=== PATIENT | male | born 1995 ===

== ENCOUNTER 2020-08-17 00:52 | Emergency (ER) | payer SELFPAY ==
[2020-08-17 00:53] VITALS: BP 147/77; PULSE 92; RESP 14; TEMP 36.7; O2SAT 99; BMI 29.5
[2020-08-17 02:17] LABS: Glucose Urine UA NEG (NEG); Leukocyte Esterase Urine NEG (NEG); Nitrite Urine NEG (NEG); Specific Gravity - Urine 1.015 (1.005-1.025); Urine Blood NEG (NEG); Urine Ketones NEG (NEG); Urine Protein NEG (NEG-TRACE)
[2020-08-17 02:18] LABS: Appearance Urine CLEAR; Color Urine YELLOW; UACC CULT NO
[2020-08-17 02:23] LABS: RBC Urine 0-2 /HPF (0); Squamous Epithelial Cell Urine 1+ /LPF; WBC Urine 0-2 /HPF (0-4)
--- NOTE | 2020-08-17 02:31 | CT_ITS ---
EXAMINATION: CT ABDOMEN AND PELVIS WITH CONTRAST CLINICAL INFORMATION: Left-sided pain. COMPARISON: None. TECHNIQUE: Contiguous axial thin section helical images of the abdomen and pelvis were performed following the administration of 85 mL of intravenous Omnipaque 350. The data set was reformatted in the coronal and sagittal planes and reviewed on an independent workstation. DLP: 549 mGy-cm. FINDINGS: The visualized lung bases are clear. The visualized portions of the heart are unremarkable. The liver is of normal size and attenuation without focal lesions nor intrahepatic biliary ductal dilation. A normal gallbladder is identified. There is no wall thickening or discernible pericholecystic fluid. The spleen, pancreas, adrenal glands are unremarkable. Both kidneys are of normal size and attenuation without hydronephrosis or nephrolithiasis. Following the administration of IV contrast, prompt symmetric nephrograms are displayed. There is no abdominal free fluid. There is neither mesenteric nor retroperitoneal lymphadenopathy. Normal unopacified loops of small and large bowel are identified. A normal appendix is identified. There is no pelvic free fluid. The urinary bladder is unremarkable. There is neither pelvic nor inguinal lymphadenopathy. Bone windows: Neither sclerotic nor lytic bone lesions are identified. CT/CT abdomen pelvis w con IMPRESSION: No evidence for acute abdominal or pelvic inflammatory or infectious processes. Automated exposure control (Care Dose) Adjustment of the mA and/or kv according to patient size (this includes techniques or standardized protocols for targeted exams where dose is matched to indication / reason for exam; i.e. extremities or head).
--- NOTE | 2020-08-17 02:46 | ED.ABDPAIN ---
HPI - Abdominal Pain General Chief Complaint: Skin/Abscess/Foreign Body Stated Complaint: Lump Time Seen by Provider: 08/17/20 02:31 Source: patient Mode of arrival: ambulatory Limitations: no limitations History of Present Illness HPI narrative: This is a 25-year-old male without significant past medical history who presents with 2-3 days overall feeling worse but denies any fevers, chills, myalgias, arthralgias, sore throat, shortness of breath, chest pain /palpitations. However, patient has stated that he has been experiencing a decrease in appetite with some mild nausea when eating but no diarrhea or abdominal discomfort. In addition, he notes a swelling to the left inguinal area that he noticed when he was lifting up a heavy object that causes some discomfort but he denies any additional exacerbation on direct palpation. The latter has not been associated with any obstipation or inability to have a bowel movement. He also states he has a headache with discomfort on eye movement. Related Data Allergies Allergy/AdvReac Type Severity Reaction Status Date / Time bee pollen [bee stings] Allergy Unknown Unknown Verified 08/17/20 00:57 Review of Systems Review of Systems Pertinent positives and negatives as stated in HPI 10 point review of systems otherwise negative. Physical Exam Vital Signs: Vital Signs: Last Vital Signs Temp 98.8 F 08/17/20 04:59 Pulse 67 08/17/20 04:59 Resp 18 08/17/20 04:59 BP 134/62 08/17/20 04:59 Pulse Ox 99 08/17/20 04:59 Body Mass Index 29.5 VITAL SIGNS: Reviewed. GENERAL: Well developed, well nourished, in no acute distress. HEAD: Normocephalic/atraumatic, EYES: PERRLA, EOMI intact without pain, no nystagmus/pallor/icterus noted EARS: Ext canals without abnormality, TMs non-bulging and non-erythematous NOSE: Nares patent bilateral OROPHARYNX: no oral lesions noted, posterior pharynx clear and non-erythematous without noted tonsillar enlargement/erythema/exudates NECK: Supple, no adenopathy LUNGS: Normal breath sounds. No adventitious sounds or accessory muscle use. SpO2<99> CARDIOVASCULAR: Regular rate and rhythm without noted murmurs, no JVD or lower extremity edema. ABDOMEN: Soft, non-tender, non-distended with bowel sounds. No rigidity. No guarding. No palpable masses or hernias noted, Noted 3-4.5 cm swelling at the mid left inguinal area without extension into the scrotum and absent overlying erythema/ induration and no noted tenderness on palpation MUSCULOSKELETAL: No tenderness, deformities, or effusions noted on gross inspection. EXTREMITIES: No cyanosis, clubbing or edema. SKIN: Inspection of the skin reveals no rashes, ulcerations, jaundice, pallor, or petechiae, mildly diaphoretic. NEUROLOGIC: Alert and oriented x 4. Strength and sensation to light touch were grossly intact x 4. Course Course Course Narrative: This is a 25-year-old male with history and clinical presentation suggestive of possible left inguinal hernia and given associated nausea with eating there is a possibility of strangulation, vs. viral syndrome. On review of all investigations there are no significant findings to better explain patient's presenting symptoms, chest x-ray and urinalysis as well as CT of abdomen pelvis are without any acute findings. Patient has had significant improvement of symptoms with the combination analgesics on re-evaluation. All findings and results were discussed with him at bedside and he was strongly encouraged to contact [facility] and get plugged in with a primary care provider so that he can undergo further evaluation and management of non emergent hernia. MDM - Abdominal Pain Lab Data Result diagrams: 08/17/20 02:51 08/17/20 02:51 Labs: Lab Results 08/17/20 08/17/20 08/17/20 Range/Units 02:12 02:51 02:51 WBC 4.2 L (4.8-10.8) X10*3/uL RBC 4.73 (4.60-5.80) X10*6/uL Hgb 14.8 (14.0-18.0) g/dl Hct 41.6 L (42-52) % MCV 87.9 (80-98) fL MCH 31.3 (27.0-33.0) pg MCHC 35.6 (31.0-36.0) g/dl RDW 11.4 (11.0-16.0) % Plt Count 141 L (160-400) X10*3/uL MPV 8.9 L (9.4-12.4) fL Immature Gran % (Auto) 0.2 (0.0-0.4) % Neut % (Auto) 73.7 H (45-73) % Lymph % (Auto) 16.6 L (20-40) % [place] % (Auto) 9.0 (2-11) % Eos % (Auto) 0.0 (0-4) % Baso % (Auto) 0.5 (0-2) % Lymph # (Auto) 0.7 L (1.2-4.9) X10*3/uL [place] # (Auto) 0.4 (0.1-1.2) X10*3/uL Eos # (Auto) 0.0 (0.0-0.4) X10*3/uL Baso # (Auto) 0.0 (0.0-0.2) X10*3/uL Abs Immat Gran (auto) 0.01 (0.00-0.03) X10*3/uL Absolute Neuts (auto) 3.1 (2.0-8.3) X10*3/uL Absolute Nucleated RBC 0.000 (0.0-0.012) X10*3/uL Nucleated RBC % (auto) 0.0 (0.0-0.2) /100WBC Sodium 134 L (135-145) mmol/L Potassium 4.2 (3.3-5.1) mmol/l Chloride 101 (96-108) mmol/L Carbon Dioxide 27 (22-29) mmol/L Anion Gap 10 L (12-20) BUN 8 L (9-16) mg/dL Creatinine 1.04 (0.5-1.4) mg/dL Estim Creat Clear Calc 123.4 Estimated GFR > 60 Random Glucose 114 (60-115) mg/dL Lactic Acid (0.5-2.0) mmol/L Calcium 8.8 (8.4-10.2) mg/dL Total Bilirubin 0.8 (0.0-1.0) mg/dL AST 49 H (5-37) U/L ALT 64 H (0-40) U/L Alkaline Phosphatase 76 (39-117) U/L Total Protein 7.1 (6.5-8.0) g/dL Albumin 4.5 (3.5-5.0) g/dL Urine Color YELLOW Urine Appearance CLEAR Urine pH 8.0 (5.0-8.0) Ur Specific [place] 1.015 (1.005-1.025) Urine Protein NEG (NEG-TRACE) MG/DL Urine Glucose (UA) NEG (NEG) MG/DL Urine Ketones NEG (NEG) MG/DL Urine Blood NEG (NEG) Urine Nitrite NEG (NEG) Ur Leukocyte Esterase NEG (NEG) Urine RBC 0-2 (0) /HPF Urine WBC 0-2 (0-4) /HPF Ur Squamous Epith Cells 1+ /LPF Urine Bacteria NONE /LPF 08/17/20 Range/Units 02:51 WBC (4.8-10.8) X10*3/uL RBC (4.60-5.80) X10*6/uL Hgb (14.0-18.0) g/dl Hct (42-52) % MCV (80-98) fL MCH (27.0-33.0) pg MCHC (31.0-36.0) g/dl RDW (11.0-16.0) % Plt Count (160-400) X10*3/uL MPV (9.4-12.4) fL Immature Gran % (Auto) (0.0-0.4) % Neut % (Auto) (45-73) % Lymph % (Auto) (20-40) % [place] % (Auto) (2-11) % Eos % (Auto) (0-4) % Baso % (Auto) (0-2) % Lymph # (Auto) (1.2-4.9) X10*3/uL [place] # (Auto) (0.1-1.2) X10*3/uL Eos # (Auto) (0.0-0.4) X10*3/uL Baso # (Auto) (0.0-0.2) X10*3/uL Abs Immat Gran (auto) (0.00-0.03) X10*3/uL Absolute Neuts (auto) (2.0-8.3) X10*3/uL Absolute Nucleated RBC (0.0-0.012) X10*3/uL Nucleated RBC % (auto) (0.0-0.2) /100WBC Sodium (135-145) mmol/L Potassium (3.3-5.1) mmol/l Chloride (96-108) mmol/L Carbon Dioxide (22-29) mmol/L Anion Gap (12-20) BUN (9-16) mg/dL Creatinine (0.5-1.4) mg/dL Estim Creat Clear Calc Estimated GFR Random Glucose (60-115) mg/dL Lactic Acid 0.7 (0.5-2.0) mmol/L Calcium (8.4-10.2) mg/dL Total Bilirubin (0.0-1.0) mg/dL AST (5-37) U/L ALT (0-40) U/L Alkaline Phosphatase (39-117) U/L Total Protein (6.5-8.0) g/dL Albumin (3.5-5.0) g/dL Urine Color Urine Appearance Urine pH (5.0-8.0) Ur Specific [place] (1.005-1.025) Urine Protein (NEG-TRACE) MG/DL Urine Glucose (UA) (NEG) MG/DL Urine Ketones (NEG) MG/DL Urine Blood (NEG) Urine Nitrite (NEG) Ur Leukocyte Esterase (NEG) Urine RBC (0) /HPF Urine WBC (0-4) /HPF Ur Squamous Epith Cells /LPF Urine Bacteria /LPF Discharge Plan Discharge Clinical Impression: Acute viral syndrome Patient Disposition: Home, Self-Care Instructions: Viral Syndrome (ED) Additional Instructions: 1. Tylenol 1000 mg, orally, every 6 hours as needed for body aches. Do not exceed 4000 mg within 24 hours. 2. Ibuprofen 400 mg, orally with milk or food, every 6 hours as needed for body aches. 3. Continued increase fluid hydration specifically with water. The patient and/or family acknowledge understanding of results (as applicable), diagnosis, treatment plan, need for follow up, and symptoms that should prompt a return to the emergency room. Referrals: Physician,None [Primary Care Provider] - 2 days PMFSH Past Medical History Source: nursing notes reviewed Medical History No active medical problems Social History Social History Alcohol intake: never Smoking Status: Never smoker Substance Use Type: Marijuana Substance Use Frequency: Weekly Advance Directives: No Advance Directives Information Provided: No
[2020-08-17 02:55] VITALS: BP 123/68; PULSE 82; RESP 18; TEMP 39.2; O2SAT 98
[2020-08-17 02:57] LABS: Imm Gran Abs Auto 0.01 X10*3/uL (0.00-0.03); Imm Gran Pct Auto 0.2 % (0.0-0.4); PLT CLUMP 1; SCAN SMEAR FLAG 1
[2020-08-17 02:58] LABS: Basophils Percent Auto 0.5 % (0-2); Hematocrit 41.6 % (42-52); Hemoglobin 14.8 g/dl (14.0-18.0); Lymphocytes Absolute Auto 0.7 X10*3/uL (1.2-4.9); Lymphocytes Percent Auto 16.6 % (20-40); Mean Corpuscular HGB Conc 35.6 g/dl (31.0-36.0); Mean Corpuscular Hemoglobin 31.3 pg (27.0-33.0); Mean Corpuscular Volume 87.9 fL (80-98); Mean Platelet Volume 8.9 fL (9.4-12.4); Monocytes Absolute Auto 0.4 X10*3/uL (0.1-1.2); Neutrophils Absolute Auto 3.1 X10*3/uL (2.0-8.3); Neutrophils Percent Auto 73.7 % (45-73); Platelet Count 141 X10*3/uL (160-400); Red Blood Count 4.73 X10*6/uL (4.60-5.80); Red Cell Distribution Width 11.4 % (11.0-16.0); White Blood Count 4.2 X10*3/uL (4.8-10.8)
--- NOTE | 2020-08-17 02:58 | PC.NURSE ---
pt states pain to eyes tara with trying to move his eyes to look either up/down or left/right. tim loo made aware.
[2020-08-17 02:59] LABS: MANUAL DIFF FLAG NO
[2020-08-17] MEDS: Ketorolac Tromethamine 15 MG/ML VIAL IVPUSH (03:11)
[2020-08-17] MEDS: Acetaminophen 325 MG TABLET 975 MG PO (03:11)
[2020-08-17 03:23] LABS: Lactic Acid 0.7 mmol/L (0.5-2.0)
[2020-08-17 03:27] LABS: Alanine Aminotransferase 64 U/L (0-40); Albumin Level 4.5 g/dL (3.5-5.0); Alkaline Phosphatase 76 U/L (39-117); Anion Gap 10 (12-20); Aspartate Amino Transferase 49 U/L (5-37); Bilirubin Total 0.8 mg/dL (0.0-1.0); Blood Urea Nitrogen 8 mg/dL (9-16); Calcium 8.8 mg/dL (8.4-10.2); Carbon Dioxide 27 mmol/L (22-29); Chloride 101 mmol/L (96-108); Creatinine Clr Calc Pharmacy 123.4; Estimated Glomerular Filt Rate > 60; Glucose Random 114 mg/dL (60-115); Potassium 4.2 mmol/l (3.3-5.1); Sodium 134 mmol/L (135-145); Total Protein 7.1 g/dL (6.5-8.0)
[2020-08-17] MEDS: iohexoL 350 MG/ML 100 ML INFUS..BTL 85 ML IV (03:46)
--- NOTE | 2020-08-17 04:39 | XR_ITS ---
EXAMINATION: CHEST 2 VIEWS CLINICAL INFORMATION: Cough. COMPARISON: None. TECHNIQUE: PA and lateral views of the chest were obtained. FINDINGS: The cardiac silhouette is not enlarged. The mediastinal and hilar contours are unremarkable. There are neither pleural effusions nor pneumothoraces. There are no consolidations. The osseous structures are unremarkable. XR/XR chest 2V IMPRESSION: No evidence for acute disease.
--- NOTE | 2020-08-17 04:48 | PC.NURSE ---
PT OFF FLOOR TO XRAY. OTHER RESULTS RECEIVED, AWAITING XRAY RESULT AND MD REEVAL.AWARE OF PLAN OF CARE.
[2020-08-17 04:59] VITALS: BP 134/62; PULSE 67; RESP 18; TEMP 37.1; O2SAT 99
--- NOTE | 2020-08-17 05:03 | PC.NURSE ---
pt temp resolved. pt states he was having hot and cold flashes. pt also states his pain with eye movement has resolved as well.
== END 2020-08-17 05:30 | disposition home or self-care (01) ==
PROVIDERS: Emergency Provider Student in an Organized Health Care Education/Training Program
DX: B34.9 Viral infection, unspecified (principal); R10.9 Unspecified abdominal pain; R07.9 Chest pain, unspecified
CPT/HCPCS: 36415; 71046; 74177; 80053; 81001; 83605; 85025; 96374; 99284; J1885; Q9967

== ENCOUNTER 2021-02-24 14:20 | Emergency (ER) | payer SELFPAY ==
[2021-02-24 15:12] VITALS: BP 152/103; PULSE 95; RESP 16; TEMP 36.2; O2SAT 100; BMI 28.3
--- NOTE | 2021-02-24 15:42 | PC.NURSE ---
CALL TO WR BATHROOM, PT WAS ON THE FLOOR OF THE BATHROOM HE STATES HE WAS VOMITING INTO THE TOILET FROM A KNEELING POSITION AND WHEN HE WENT TO STAND HIS LEG GAVE OUT AND HE WENT TO THE FLOOR. NO LOC THE PATIENT PULLED THE CORD IMMEDIATELY. HE REPORTS NO INJURIES.
[2021-02-24 16:00] LABS: MANUAL DIFF FLAG NO
[2021-02-24 16:04] LABS: Basophils Percent Auto 0.2 % (0-2); Eosinophils Percent Auto 0.1 % (0-4); Hematocrit 44.7 % (42-52); Hemoglobin 16.3 g/dl (14.0-18.0); Imm Gran Abs Auto 0.05 X10*3/uL (0.00-0.03); Imm Gran Pct Auto 0.4 % (0.0-0.4); Lymphocytes Absolute Auto 1.5 X10*3/uL (1.2-4.9); Lymphocytes Percent Auto 11.2 % (20-40); Mean Corpuscular HGB Conc 36.5 g/dl (31.0-36.0); Mean Corpuscular Hemoglobin 31.8 pg (27.0-33.0); Mean Corpuscular Volume 87.1 fL (80-98); Mean Platelet Volume 8.7 fL (9.4-12.4); Monocytes Absolute Auto 0.8 X10*3/uL (0.1-1.2); Monocytes Percent Auto 5.7 % (2-11); Neutrophils Absolute Auto 11.1 X10*3/uL (2.0-8.3); Neutrophils Percent Auto 82.4 % (45-73); Platelet Count 253 X10*3/uL (160-400); Red Blood Count 5.13 X10*6/uL (4.60-5.80); White Blood Count 13.5 X10*3/uL (4.8-10.8)
--- NOTE | 2021-02-24 16:25 | ED_ITS ---
HPI - Nausea/Vomiting/Diarrhea General Chief complaint: Nausea/Vomiting/Diarrhea Stated complaint: VOMITING Time Seen by Provider: 02/24/21 16:25 Source: patient Mode of arrival: ambulatory Limitations: no limitations History of Present Illness HPI Narrative: Patient with history of vomiting almost every 3 - 4 months smokes marijuana had previous workup done in the past negative CT scan in 08/22 was negative for any acute pathology comes here for vomiting for last 2 days smoke marijuana yesterday feels better after hot shower. Patient vomiting 7-10 times a day with diffuse abdominal cramps no fever no chills , no diarrhea. No urinary complaints no other family member sick no foreign travel Related Data Previous Rx's Medication Instructions Recorded ondansetron 4 mg PO Q6-8H PRN #10 tab 02/24/21 Allergies Allergy/AdvReac Type Severity Reaction Status Date / Time bee pollen [bee stings] Allergy Unknown Unknown Verified 08/17/20 00:57 Review of Systems Review of Systems: Constitutional : No Weight loss, No Fever, No Chills ENT/Mouth : No sore throat, No Rhinorrhea Eyes: No Eye Pain, No Swelling Cardiovascular : No Chest Pain, no palpitations Respiratory : No Cough, No Sputum, no shortness of breath Gastrointestinal : + Nausea, + Vomiting, No Diarrhea,+ abdominal Pain, no black stools Genitourinary : No Dysuria, No Urinary Frequency Musculoskeletal : No joint pain, No Myalgias, No Joint Swelling Skin : No Skin Lesions, No rash Neuro : No Weakness, No Numbness, No Dizziness, No Headache Psych : No Anxiety/Panic, No Depression Heme/Lymph: No Bruising, No Lymphadenopathy Endocrine : No Polyuria, No Polydipsia All other systems reviewed and are negative PMFSH Past Medical History Medical History No active medical problems Social History Social History Alcohol intake: never Smoking Status: Never smoker Substance Use Type: Marijuana Advance Directives: No Advance Directives Information Provided: Yes Physical Exam Vital Signs: Vital Signs: Last Vital Signs Temp 97.1 F 02/24/21 15:12 Pulse 95 02/24/21 15:12 Resp 16 02/24/21 15:12 BP 152/103 H 02/24/21 15:12 Pulse Ox 100 02/24/21 15:12 Body Mass Index 28.3 Appearance: Alert. Oriented X3. No acute distress. Eyes: PERRLA, No Nystagmus ENT: Pharynx normal. Oral Mucosa moist Neck: Normal inspection. Neck supple. CVS: Normal heart rate and rhythm. Pulses normal. Respiratory: No respiratory distress. Equal air entry bilateral, no wh eezing/rales/rhonchi Abdomen: Soft , mild diffuse tenderness no focal tenderness or guarding, Bowel sounds are present, no mass palpable, no CVA tenderness Skin: Skin warm and dry. Normal skin color. Normal skin turgor. Extremities: No lower extremity edema. No calf tenderness Neuro: Oriented X 3. No motor deficit. No sensory deficit.No cerebellar signs , cranial nerves II-XII intact MDM - Nausea/Vomiting/Diarrhea Lab Data Result diagrams: 02/24/21 15:53 02/24/21 15:53 Labs: Lab Results 02/24/21 02/24/21 Range/Units 15:53 15:53 WBC 13.5 H (4.8-10.8) X10*3/uL RBC 5.13 (4.60-5.80) X10*6/uL Hgb 16.3 (14.0-18.0) g/dl Hct 44.7 (42-52) % MCV 87.1 (80-98) fL MCH 31.8 (27.0-33.0) pg MCHC 36.5 H (31.0-36.0) g/dl RDW 12.0 (11.0-16.0) % Plt Count 253 D (160-400) X10*3/uL MPV 8.7 L (9.4-12.4) fL Immature Gran % (Auto) 0.4 (0.0-0.4) % Neut % (Auto) 82.4 H (45-73) % Lymph % (Auto) 11.2 L (20-40) % [place] % (Auto) 5.7 (2-11) % Eos % (Auto) 0.1 (0-4) % Baso % (Auto) 0.2 (0-2) % Lymph # (Auto) 1.5 (1.2-4.9) X10*3/uL [place] # (Auto) 0.8 (0.1-1.2) X10*3/uL Eos # (Auto) 0.0 (0.0-0.4) X10*3/uL Baso # (Auto) 0.0 (0.0-0.2) X10*3/uL Abs Immat Gran (auto) 0.05 H (0.00-0.03) X10*3/uL Absolute Neuts (auto) 11.1 H (2.0-8.3) X10*3/uL Absolute Nucleated RBC 0.000 (0.0-0.012) X10*3/uL Nucleated RBC % (auto) 0.0 (0.0-0.2) /100WBC Sodium 136 (135-145) mmol/L Potassium 4.2 (3.3-5.1) mmol/L Chloride 98 (96-108) mmol/L Carbon Dioxide 21 L (22-29) mmol/L Anion Gap 21 H (12-20) BUN 22 H D (9-16) mg/dL Creatinine 1.17 (0.5-1.4) mg/dL Estim Creat Clear Calc 107.6 Estimated GFR > 60 Random Glucose 122 H (60-115) mg/dL Calcium 10.4 H D (8.4-10.2) mg/dL Discharge Plan Discharge Clinical Impression: Vomiting, Cannabis abuse Patient Disposition: Home, Self-Care Instructions: Cannabis Abuse (ED), Cyclic Vomiting Syndrome (ED) Additional Instructions: Stop smoking cannabis Drink plenty of fluids Prescriptions: New ondansetron 4 mg tablet,disintegrating 4 mg PO Q6-8H PRN (Reason: Nausea And Vomiting) Qty: 10 RF: 0 Interventions: ED Discharge Assessment Last Done: 02/24/21 19:58 Discharge Date/Time: 02/24/21 19:59
[2021-02-24 16:32] LABS: Anion Gap 21 (12-20); Blood Urea Nitrogen 22 mg/dL (9-16); Calcium 10.4 mg/dL (8.4-10.2); Carbon Dioxide 21 mmol/L (22-29); Chloride 98 mmol/L (96-108); Creatinine Clr Calc Pharmacy 107.6; Estimated Glomerular Filt Rate > 60; Glucose Random 122 mg/dL (60-115); Potassium 4.2 mmol/L (3.3-5.1); Sodium 136 mmol/L (135-145)
[2021-02-24] MEDS: LORazepam 2 MG/ML VIAL IM (16:57)
== END 2021-02-24 19:59 | disposition home or self-care (01) ==
PROVIDERS: Emergency Provider Internal Medicine
DX: R11.2 Nausea with vomiting, unspecified (principal); R10.9 Unspecified abdominal pain; F12.10 Cannabis abuse, uncomplicated
CPT/HCPCS: 36415; 80048; 85025; 96372; 99283; 99284; J2060

== ENCOUNTER 2021-06-12 09:08 | Outpatient (REF) | payer SELFPAY | END 2021-06-12 09:09 | disposition home or self-care (01) | LOC: HO.LAB 09:08 | PROVIDERS: Visit Provider Internal Medicine | DX: Z13.89 Encounter for screening for other disorder (principal) ==

== ENCOUNTER 2022-06-30 13:35 | Outpatient (REF) | payer MEDICAID, SELFPAY ==
--- NOTE | ~2022-06-30 | XR_ITS ---
EXAMINATION: XR HAND, LEFT CLINICAL INFORMATION: Swelling, mass, and lump. COMPARISON: None TECHNIQUE: PA, lateral, and oblique views of the left hand. FINDINGS: No fracture or dislocation. Normal carpal alignment. No significant joint space narrowing or marginal osteophytes. No osseous erosion. No periarticular osteopenia. No abnormal soft tissue calcification. XR/XR hand LT min 3V IMPRESSION: Unremarkable examination.
== END 2022-06-30 13:36 | disposition home or self-care (01) ==
LOC: HO.XRAY 13:35
PROVIDERS: Visit Provider Emergency Medicine
DX: R22.32 Localized swelling, mass and lump, left upper limb (principal)
CPT/HCPCS: 73130

== ENCOUNTER → 2022-09-14 13:54 | Outpatient (BNVA) | payer MEDICAID, SELFPAY | PROVIDERS: Visit Provider Orthopaedic Surgery | DX: M67.432 Ganglion, left wrist (principal); R20.0 Anesthesia of skin; R20.2 Paresthesia of skin | CPT/HCPCS: 20612; 99202 ==

== ENCOUNTER 2022-10-12 20:55 | Emergency (ER) | payer MEDICAID, SELFPAY ==
[2022-10-12 21:02] VITALS: BP 128/92; PULSE 109; RESP 18; TEMP 36.1; O2SAT 98; BMI 29.1
--- NOTE | 2022-10-12 21:29 | ED_ITS ---
HPI - General Adult General Chief complaint: Nausea/Vomiting/Diarrhea Stated complaint: Abdominal pain Time Seen by Provider: 10/12/22 21:29 Source: patient Mode of arrival: ambulatory Limitations: no limitations History of Present Illness HPI narrative: Patient has cyclic vomiting/cannabis induced vomiting for long-time smokes marijuana last him smoke was few days of complaining of nausea vomiting for last 5 days patient does get this problem almost unable to hold any fluids or solids no abdominal pain no fever Related Data Previous Rx's Medication Instructions Recorded ondansetron 4 mg disintegrating 4 mg PO Q6-8H PRN Nausea And 02/24/21 tablet Vomiting #10 tabs lorazepam 1 mg tablet (Ativan) 1 mg PO BEDTIME PRN 10/13/22 Anxiety/vomiting #10 tabs ondansetron 4 mg disintegrating 4 mg PO Q6-8H PRN nausea and 10/13/22 tablet vomiting #10 tabs Allergies Allergy/AdvReac Type Severity Reaction Status Date / Time bee pollen [bee stings] Allergy Unknown Unknown Verified 08/17/20 00:57 Review of Systems Review of Systems: Yes all other systems are reviewed and are negative PMFSH Past Medical History Medical History No active medical problems Social History Social History Alcohol intake: never Patient Tobacco Use Status: Never used Tobacco Substance Use Type: Marijuana Advance Directives: No Advance Directives Information Provided: No Current occupational status: unemployed Physical Exam ED Vital Signs: Vital Signs - 24 hr 10/12/22 21:02 10/12/22 23:11 Temperature 96.9 F 98.2 F Pulse Rate 109 H 80 Respiratory Rate 18 16 Blood Pressure 128/92 H 131/74 Pulse Oximetry 98 98 Oxygen Delivery Method Room Air Room Air BMI result Body Mass Index 29.1 Appearance: Alert. Oriented X3. No acute distress. Eyes: PERRLA, No Nystagmus ENT: Pharynx normal. Oral Mucosa moist Neck: Normal inspection. Neck supple. CVS: Normal heart rate and rhythm. Pulses normal. Respiratory: No respiratory distress. Equal air entry bilateral, no wheezing/rales/rhonchi Abdomen: Soft and nontender. Bowel sounds are present, no mass palpable, no CVA tenderness Skin: Skin warm and dry. Normal skin color. Normal skin turgor. Extremities: No lower extremity edema. No calf tenderness Neuro: Oriented X 3. No motor deficit. Medications Administered Discontinued Medications Generic Name Dose Route Start Last Admin Trade Name Nigel PRN Reason Stop Dose Admin Sodium Chloride 1,000 mls @ 999 mls/hr 10/12/22 21:56 10/13/22 00:36 Ns IV 10/12/22 22:56 Infused .Q1H1M ONE Infusion Sodium Chloride 1,000 mls @ 999 mls/hr 10/13/22 00:24 10/13/22 00:37 Ns IV 10/13/22 01:24 999 mls/hr .Q1H1M ONE Administration Lorazepam 1 mg 10/12/22 21:56 10/12/22 22:16 Lorazepam 2 Mg/Ml Vial IVPUSH 10/12/22 21:57 1 mg ONCE ONE Administration Potassium Bicarbonate 25 meq 10/13/22 00:24 10/13/22 00:37 Potassium Bicarbonate/Cit Ac 25 Meq Tablet.Eff PO 10/13/22 00:25 25 meq ONCE ONE Administration Prochlorperazine Edisylate 10 mg 10/12/22 21:56 10/12/22 22:16 Prochlorperazine Edisylate 10 Mg/2 Ml Vial IVPUSH 10/12/22 21:57 10 mg ONCE ONE Administration Medical Decision Making Medical Decision Making [facility] Narrative: Patient has cyclic vomiting syndrome/cannabis induced vomiting received 2 L of IV fluid and p.o. potassium taking p.o. fluids now feeling much better will discharge patient advised not to smoke marijuana Lab Data [facility] Lab Attestation statement: I reviewed the patient's lab results. 10/12/22 22:23 10/12/22 22:23 Labs: Lab Results 10/12/22 10/12/22 Range/Units 22:23 22:23 WBC 12.1 H (4.8-10.8) X10*3/uL RBC 5.40 (4.60-5.80) X10*6/uL Hgb 16.5 (14.0-18.0) g/dl Hct 45.0 (42.0-52.0) % MCV 83.3 (80.0-98.0) fL MCH 30.6 (27.0-33.0) pg MCHC 36.7 H (31.0-36.0) g/dl RDW 11.5 (11.0-16.0) % Plt Count 278 (160-400) X10*3/uL MPV 8.5 L (9.4-12.4) fL Immature Gran % (Auto) 0.2 (0.0-0.4) % Neut % (Auto) 63.8 (45-73) % Lymph % (Auto) 25.6 (20-40) % [place] % (Auto) 9.9 (2-11) % Eos % (Auto) 0.3 (0-4) % Baso % (Auto) 0.2 (0-2) % Lymph # (Auto) 3.1 (1.2-4.9) X10*3/uL [place] # (Auto) 1.2 (0.1-1.2) X10*3/uL Eos # (Auto) 0.0 (0.0-0.4) X10*3/uL Baso # (Auto) 0.0 (0.0-0.2) X10*3/uL Abs Immat Gran (auto) 0.03 (0.00-0.03) X10*3/uL Absolute Neuts (auto) 7.7 (2.0-8.3) x10*3/uL Absolute Nucleated RBC 0.000 (0.0-0.012) X10*3/uL Nucleated RBC % (auto) 0.0 (0.0-0.2) /100WBC Sodium 134 L (135-145) mmol/L Potassium 3.2 L D (3.3-5.1) mmol/L Chloride 88 L (96-108) mmol/L Carbon Dioxide 28 (22-29) mmol/L Anion Gap 21 H (12-20) BUN 42 H (9-16) mg/dL Creatinine 1.86 H (0.5-1.4) mg/dL Estim Creat Clear Calc 67.4 Estimated GFR 43 Random Glucose 112 (60-115) mg/dL Calcium 10.2 (8.4-10.2) mg/dL Total Bilirubin 2.0 H (0.0-1.0) mg/dL AST 28 D (5-37) U/L ALT 41 H (0-40) U/L Alkaline Phosphatase 87 (39-117) U/L Total Protein 8.4 H (6.5-8.0) g/dL Albumin 5.1 H (3.5-5.0) g/dL Discharge Plan Discharge Clinical Impression: Cyclic vomiting syndrome Patient Disposition: Home, Self-Care Instructions: Cyclic Vomiting Syndrome (ED) Additional Instructions: Stop smoking marijuana Nausea medication and Ativan as prescribed Prescriptions: New lorazepam [Ativan] 1 mg tablet 1 mg PO BEDTIME PRN (Reason: Anxiety/vomiting) Qty: 10 0RF ondansetron 4 mg tablet,disintegrating 4 mg PO Q6-8H PRN (Reason: nausea and vomiting) Qty: 10 0RF No Action ondansetron 4 mg tablet,disintegrating 4 mg PO Q6-8H PRN (Reason: Nausea And Vomiting) Qty: 10 0RF
[2022-10-12] MEDS: 0.9 % Sodium Chloride 1,000 ML 999 ML IV (22:15)
[2022-10-12] MEDS: LORazepam 2 MG/ML VIAL 1 MG IVPUSH (22:16)
[2022-10-12] MEDS: Prochlorperazine Edisylate 10 MG/2 ML VIAL IVPUSH (22:16)
--- NOTE | 2022-10-12 22:25 | MHC.EDTECH ---
At 21:30 this pv design and installation technician went to draw blood work that the patient has ordered and Dr. Perez asked me are you going to draw the blood work and I said yes. Dr. Perez instructed me not to draw the patient that the nurse could get the blood draw when she puts the line on the patient. I said ok and put supplies away.
[2022-10-12 22:27] LABS: MANUAL DIFF FLAG NO
[2022-10-12 22:28] LABS: Basophils Percent Auto 0.2 % (0-2); Eosinophils Percent Auto 0.3 % (0-4); Hemoglobin 16.5 g/dl (14.0-18.0); Imm Gran Abs Auto 0.03 X10*3/uL (0.00-0.03); Imm Gran Pct Auto 0.2 % (0.0-0.4); Lymphocytes Absolute Auto 3.1 X10*3/uL (1.2-4.9); Lymphocytes Percent Auto 25.6 % (20-40); Mean Corpuscular HGB Conc 36.7 g/dl (31.0-36.0); Mean Corpuscular Hemoglobin 30.6 pg (27.0-33.0); Mean Corpuscular Volume 83.3 fL (80.0-98.0); Mean Platelet Volume 8.5 fL (9.4-12.4); Monocytes Absolute Auto 1.2 X10*3/uL (0.1-1.2); Monocytes Percent Auto 9.9 % (2-11); Neutrophils Absolute Auto 7.7 x10*3/uL (2.0-8.3); Neutrophils Percent Auto 63.8 % (45-73); Platelet Count 278 X10*3/uL (160-400); Red Cell Distribution Width 11.5 % (11.0-16.0); White Blood Count 12.1 X10*3/uL (4.8-10.8)
[2022-10-12 22:51] LABS: Alanine Aminotransferase 41 U/L (0-40); Albumin Level 5.1 g/dL (3.5-5.0); Alkaline Phosphatase 87 U/L (39-117); Anion Gap 21 (12-20); Aspartate Amino Transferase 28 U/L (5-37); Blood Urea Nitrogen 42 mg/dL (9-16); Calcium 10.2 mg/dL (8.4-10.2); Carbon Dioxide 28 mmol/L (22-29); Chloride 88 mmol/L (96-108); Creatinine Clr Calc Pharmacy 67.4; Estimated Glomerular Filt Rate 43; Glucose Random 112 mg/dL (60-115); Potassium 3.2 mmol/L (3.3-5.1); Sodium 134 mmol/L (135-145); Total Protein 8.4 g/dL (6.5-8.0)
[2022-10-12 23:11] VITALS: BP 131/74; PULSE 80; RESP 16; TEMP 36.8; O2SAT 98
[2022-10-13] MEDS: Potassium Bicarbonate/Cit AC 25 MEQ TABLET.EFF PO (00:37)
[2022-10-13] MEDS: 0.9 % Sodium Chloride 1,000 ML 999 ML IV (00:37)
--- NOTE | 2022-10-13 01:52 | PC.NURSE ---
Pt. came in with N/V. IV line was placed, labs were drawn. Pt. was able to fall asleep. Woke pt. up to take his medications (potassium). Pt. able to tolerate that with applejuice.
== END 2022-10-13 02:11 | disposition home or self-care (01) ==
PROVIDERS: Emergency Provider Internal Medicine
DX: R11.15 Cyclical vomiting syndrome unrelated to migraine (principal); F12.90 Cannabis use, unspecified, uncomplicated; Z79.899 Other long term (current) drug therapy
CPT/HCPCS: 36415; 80053; 85025; 96361; 96374; 96375; 99284; J2060

== ENCOUNTER 2022-12-15 09:58 | Outpatient (REF) | payer MEDICAID, SELFPAY ==
--- NOTE | 2022-12-15 10:01 | EMG_ITS ---
Please see scanned EMG / Nerve Conduction Report. MTDD
== END 2022-12-15 09:59 | disposition home or self-care (01) ==
LOC: HO.NEURO 09:58
PROVIDERS: Visit Provider Orthopaedic Surgery
DX: R20.0 Anesthesia of skin (principal); R20.2 Paresthesia of skin
CPT/HCPCS: 95885; 95910

== ENCOUNTER 2023-01-16 13:53 | Emergency (ER) | payer MEDICAID, SELFPAY ==
--- NOTE | ~2023-01-16 | CT_ITS ---
EXAMINATION: CT ABDOMEN AND PELVIS WITHOUT CONTRAST CLINICAL INFORMATION: 27-year-old male with abdominal pain, vomiting and nausea. COMPARISON: 08/17/2020 TECHNIQUE: Multidetector volumetric imaging was performed from the superior aspect of the liver through the pubic symphysis. Sagittal and coronal reformatted images were obtained on the technologist's workstation. This CT examination was performed using dose optimization techniques as appropriate, variously including the following: *Automated exposure control *Adjustment of mA and/or kV according to patient size (this includes techniques or standardized protocols for targeted exams where dose is matched to indication/reason for exam; i.e. extremities or head) *Use of iterative reconstruction technique DLP: 553 mGy-cm FINDINGS: LUNG BASES: The visualized lung bases are unremarkable. LIVER, GALLBLADDER, AND BILIARY TREE: The liver is normal in size, shape, and attenuation. No focal hepatic lesion or biliary ductal dilatation is present. The gallbladder is unremarkable with no evidence of radiopaque gallstones, gallbladder wall thickening, or obvious pericholecystic inflammatory changes. PANCREAS: Unremarkable. SPLEEN: Unremarkable. ADRENAL GLANDS: Unremarkable. KIDNEYS AND URETERS: The kidneys are normal in size, shape, and attenuation. No hydronephrosis, hydroureter, or calculi seen. No perinephric stranding. BLADDER: Unremarkable. GASTROINTESTINAL TRACT: The small and large bowel are unremarkable. The appendix is unremarkable. ABDOMINAL WALL: No significant hernia is appreciated. LYMPH NODES: Normal. VASCULAR: Unremarkable. PELVIC VISCERA: Unremarkable. OSSEOUS STRUCTURES: Unremarkable. CT/CT abdomen pelvis wo IV con IMPRESSION: No significant abnormality. Fleischner guidelines were followed.
[2023-01-16 14:13] VITALS: BP 147/101; PULSE 102; RESP 16; TEMP 36.6; O2SAT 99; BMI 29.4
--- NOTE | 2023-01-16 14:13 | ED_ITS ---
HPI - Nausea/Vomiting/Diarrhea General Chief complaint: Nausea/Vomiting/Diarrhea <ARNOLD Mcgrath - Last Filed: 01/16/23 14:18> Stated complaint: 4xdays throwing up <ARNOLD Mcgrath - Last Filed: 01/16/23 14:18> Time Seen by Provider: 01/16/23 16:45 <ARNOLD Mcgrath - Last Filed: 01/16/23 14:18> Source: patient <Abraham Hart MD - Last Filed: 01/16/23 19:35> Mode of arrival: ambulatory <Abraham Hart MD - Last Filed: 01/16/23 19:35> Limitations: no limitations <Abraham Hart MD - Last Filed: 01/16/23 19:35> History of Present Illness HPI Narrative: Patient history of cannabis abuse and cyclic vomiting been sick for last 4 days after eating pasta vomiting multiple times for last 2 days noticed pain in the left flank and left upper abdomen area no fever no chills no diarrhea no fever no chills no urinary symptoms no other family member sick <Abraham Hart MD - Last Filed: 01/16/23 19:35> Related Data Home medications: Previous Rx's Medication Instructions Recorded ondansetron 4 mg disintegrating 4 mg PO Q6-8H PRN Nausea And 02/24/21 tablet Vomiting #10 tabs lorazepam 1 mg tablet (Ativan) 1 mg PO BEDTIME PRN 10/13/22 Anxiety/vomiting #10 tabs ondansetron 4 mg disintegrating 4 mg PO Q6-8H PRN nausea and 10/13/22 tablet vomiting #10 tabs lorazepam 1 mg tablet (Ativan) 1 mg PO BID PRN anxiety #14 tabs 01/16/23 ondansetron 4 mg disintegrating 4 mg PO Q6-8H PRN nausea and 01/16/23 tablet vomiting #7 tabs <ARNOLD Mcgrath - Last Filed: 01/16/23 14:18> Allergies/Adverse reactions: Allergies Allergy/AdvReac Type Severity Reaction Status Date / Time bee pollen [bee stings] Allergy Unknown Unknown Verified 08/17/20 00:57 <ARNOLD Mcgrath - Last Filed: 01/16/23 14:18> Review of Systems Review of Systems: Yes all other systems are reviewed and are negative <Abraham Hart MD - Last Filed: 01/16/23 19:35> [facility] Past Medical History Medical History: Medical History No active medical problems <ARNOLD Mcgrath - Last Filed: 01/16/23 14:18> Social History Social History: Social History Alcohol intake: never Patient Tobacco Use Status: Never used Tobacco Smoked in Last 30 Days: No Use of substances other than those prescribed or required for medical reasons: Yes Substance Use Type: Marijuana Substance Use Frequency: Occasionally Last Used Substance: Days (ago) Advance Directives: No Advance Directives Information Provided: No Current occupational status: unemployed <ARNOLD Mcgrath - Last Filed: 01/16/23 14:18> Physical Exam Vital Signs: Vital Signs: Last Vital Signs Temp 98.9 F 01/16/23 18:00 Pulse 85 01/16/23 18:00 Resp 01/16/23 18:00 BP 123/63 01/16/23 18:00 Pulse Ox 97 01/16/23 18:00 O2 Del Method Room Air 01/16/23 18:00 BMI result Body Mass Index 29.4 <ARNOLD Mcgrath - Last Filed: 01/16/23 14:18> Vital Signs: Last Vital Signs Temp 98.9 F 01/16/23 18:00 Pulse 85 01/16/23 18:00 Resp 01/16/23 18:00 BP 123/63 01/16/23 18:00 Pulse Ox 97 01/16/23 18:00 O2 Del Method Room Air 01/16/23 18:00 BMI result Body Mass Index 29.4 <Abraham Hart MD - Last Filed: 01/16/23 19:35> Appearance: Alert. Oriented X3. Anxious ENT: Pharynx normal. Oral Mucosa moist Neck: Normal inspection. Neck supple. CVS: Normal heart rate and rhythm. Pulses normal. Respiratory: No respiratory distress. Equal air entry bilateral, no wheezing/rales/rhonchi Abdomen: Soft , tenderness left upper abdomen and left flank, Bowel sounds are present, no mass palpable, Skin: Skin warm and dry. Normal skin color. Normal skin turgor. Extremities: No lower extremity edema. No calf tenderness Neuro: Oriented X 3. <Abraham Hart MD - Last Filed: 01/16/23 19:35> Course Course Course Narrative: STEPHANIE-14:15PM - 27yoM with a PMHx of cannabis induced cyclical vomiting who is presenting to the ER with complaints of nausea/vomiting with abdominal cramping that started 4 days ago. Reports that he ate some pasta and did smoke stone marijuana approximately 5 days ago and then the next morning he woke up and had sudden onset of nausea/vomiting. He denied any abdominal pain although here in triage she developed a sharp pain to the left side of his abdomen/flank/back. Reports he believes it may be related to the possibly he ate. He reports that he was with other people who ate the pasta and they did not have any of the symptoms. He denies any recent travel or sick contacts, any fevers, chest pain or shortness of breath, dysuria, or any other symptoms complaints or concerns at this time. Plan: 4 mg of sublingual Zofran and 30 mg of IM Toradol ordered at this time. Will obtain labs, UA, CT scan of abdomen pelvis without IV contrast. Patient will be sent back to a room to be evaluated in the ED. <ARNOLD Mcgrath - Last Filed: 01/16/23 14:18> Medications Administered Discontinued Medications Generic Name Dose Route Start Last Admin Trade Name Freq PRN Reason Stop Dose Admin Sodium Chloride 1,000 mls @ 999 mls/hr 01/16/23 16:47 01/16/23 19:08 Ns IV 01/16/23 17:47 Infused .Q1H1M ONE Infusion Ketorolac Tromethamine 30 mg 01/16/23 14:17 01/16/23 15:05 Ketorolac Tromethamine 30 Mg/Ml Vial IM 01/16/23 14:18 30 mg ONCE ONE Administration Lorazepam 2 mg 01/16/23 16:48 01/16/23 17:05 Lorazepam 2 Mg/Ml Vial IVPUSH 01/16/23 16:49 2 mg ONCE ONE Administration Morphine Sulfate 4 mg 01/16/23 16:52 01/16/23 17:04 Morphine Sulfate 4 Mg/Ml Cartridge IVPUSH 01/16/23 16:53 4 mg ONCE ONE Administration Protocol Ondansetron HCl 4 mg 01/16/23 14:14 01/16/23 15:05 Ondansetron Odt 4 Mg Tab.Rapdis TRANSLINGU 01/16/23 14:15 4 mg ONCE ONE Administration Prochlorperazine Edisylate 10 mg 01/16/23 16:48 01/16/23 17:05 Prochlorperazine Edisylate 10 Mg/2 Ml Vial IVPUSH 01/16/23 16:49 10 mg ONCE ONE Administration <ARNOLD Mcgrath - Last Filed: 01/16/23 14:18> Medications Administered Discontinued Medications Generic Name Dose Route Start Last Admin Trade Name Freq PRN Reason Stop Dose Admin Sodium Chloride 1,000 mls @ 999 mls/hr 01/16/23 16:47 01/16/23 19:08 Ns IV 01/16/23 17:47 Infused .Q1H1M ONE Infusion Ketorolac Tromethamine 30 mg 01/16/23 14:17 01/16/23 15:05 Ketorolac Tromethamine 30 Mg/Ml Vial IM 01/16/23 14:18 30 mg ONCE ONE Administration Lorazepam 2 mg 01/16/23 16:48 01/16/23 17:05 Lorazepam 2 Mg/Ml Vial IVPUSH 01/16/23 16:49 2 mg ONCE ONE Administration Morphine Sulfate 4 mg 01/16/23 16:52 01/16/23 17:04 Morphine Sulfate 4 Mg/Ml Cartridge IVPUSH 01/16/23 16:53 4 mg ONCE ONE Administration Protocol Ondansetron HCl 4 mg 01/16/23 14:14 01/16/23 15:05 Ondansetron Odt 4 Mg Tab.Rapdis TRANSLINGU 01/16/23 14:15 4 mg ONCE ONE Administration Prochlorperazine Edisylate 10 mg 01/16/23 16:48 01/16/23 17:05 Prochlorperazine Edisylate 10 Mg/2 Ml Vial IVPUSH 01/16/23 16:49 10 mg ONCE ONE Administration <Abraham Hart MD - Last Filed: 01/16/23 19:35> Medical Decision Making Medical Decision Making MDM Narrative: Patient feeling better after IV , Compazine able to take p.o. challenge likely patient has cannabis induced vomiting/cyclic vomiting <Abraham Hart MD - Last Filed: 01/16/23 19:35> Lab Data [facility] Lab Attestation statement: I reviewed the patient's lab results. <Abraham Hart MD - Last Filed: 01/16/23 19:35> Result Diagrams: 01/16/23 14:38 01/16/23 14:38 <ARNOLD Mcgrath - Last Filed: 01/16/23 14:18> Labs: Lab Results 01/16/23 01/16/23 01/16/23 Range/Units 14:38 14:38 14:38 WBC 15.0 H (4.8-10.8) X10*3/uL RBC 5.88 H (4.60-5.80) X10*6/uL Hgb 17.9 (14.0-18.0) g/dl Hct 49.0 (42.0-52.0) % MCV 83.3 (80.0-98.0) fL MCH 30.4 (27.0-33.0) pg MCHC 36.5 H (31.0-36.0) g/dl RDW 11.7 (11.0-16.0) % Plt Count 321 (160-400) X10*3/uL MPV 8.7 L (9.4-12.4) fL Immature Gran % (Auto) 0.4 (0.0-0.4) % Neut % (Auto) 71.2 (45-73) % Lymph % (Auto) 18.9 L (20-40) % Campbell % (Auto) 9.0 (2-11) % Eos % (Auto) 0.3 (0-4) % Baso % (Auto) 0.2 (0-2) % Lymph # (Auto) 2.8 (1.2-4.9) X10*3/uL Campbell # (Auto) 1.4 H (0.1-1.2) X10*3/uL Eos # (Auto) 0.0 (0.0-0.4) X10*3/uL Baso # (Auto) 0.0 (0.0-0.2) X10*3/uL Abs Immat Gran (auto) 0.06 H (0.00-0.03) X10*3/uL Absolute Neuts (auto) 10.7 H (2.0-8.3) x10*3/uL Absolute Nucleated RBC 0.000 (0.0-0.012) X10*3/uL Nucleated RBC % (auto) 0.0 (0.0-0.2) /100WBC PT 12.2 (10.0-13.1) SEC INR 1.1 (0.9-1.1) Sodium 134 L (135-145) mmol/L Potassium 3.4 (3.3-5.1) mmol/L Chloride 92 L (96-108) mmol/L Carbon Dioxide 24 (22-29) mmol/L Anion Gap 21 H (12-20) BUN 35 H (9-16) mg/dL Creatinine 1.78 H (0.5-1.4) mg/dL Estim Creat Clear Calc 70.7 Estimated GFR 46 Random Glucose 125 H (60-115) mg/dL Calcium 10.4 H (8.4-10.2) mg/dL Magnesium 2.2 (1.6-2.6) mg/dL Total Bilirubin 2.3 H (0.0-1.0) mg/dL AST 19 (5-37) U/L ALT 38 (0-40) U/L Alkaline Phosphatase 112 (39-117) U/L Total Protein 8.5 H (6.5-8.0) g/dL Albumin 5.4 H (3.5-5.0) g/dL Lipase 17 (8-78) U/L Urine Color Urine Appearance Urine pH (5.0-9.0) Ur Specific [place] (1.005-1.025) Urine Protein (Neg-Trace) mg/dL Urine Glucose (UA) (Negative) mg/dL Urine Ketones (Negative) mg/dL Urine Blood (Negative) Urine Nitrite (Negative) Ur Leukocyte Esterase (Negative) Urine RBC (0-2) /HPF Urine WBC (0-5) /HPF Ur Squamous Epith Cells (0-2) /HPF Urine Bacteria (None Seen) Hyaline Casts (0-2) /LPF Influenza Type A (PCR) (Negative) Influenza Type B (PCR) (Negative) RSV RNA Qual (PCR) (Negative) SARS-CoV-2 RNA (RT-PCR) (Negative) 01/16/23 01/16/23 Range/Units 14:38 18:57 WBC (4.8-10.8) X10*3/uL RBC (4.60-5.80) X10*6/uL Hgb (14.0-18.0) g/dl Hct (42.0-52.0) % MCV (80.0-98.0) fL MCH (27.0-33.0) pg MCHC (31.0-36.0) g/dl RDW (11.0-16.0) % Plt Count (160-400) X10*3/uL MPV (9.4-12.4) fL Immature Gran % (Auto) (0.0-0.4) % Neut % (Auto) (45-73) % Lymph % (Auto) (20-40) % Campbell % (Auto) (2-11) % Eos % (Auto) (0-4) % Baso % (Auto) (0-2) % Lymph # (Auto) (1.2-4.9) X10*3/uL Campbell # (Auto) (0.1-1.2) X10*3/uL Eos # (Auto) (0.0-0.4) X10*3/uL Baso # (Auto) (0.0-0.2) X10*3/uL Abs Immat Gran (auto) (0.00-0.03) X10*3/uL Absolute Neuts (auto) (2.0-8.3) x10*3/uL Absolute Nucleated RBC (0.0-0.012) X10*3/uL Nucleated RBC % (auto) (0.0-0.2) /100WBC PT (10.0-13.1) SEC INR (0.9-1.1) Sodium (135-145) mmol/L Potassium (3.3-5.1) mmol/L Chloride (96-108) mmol/L Carbon Dioxide (22-29) mmol/L Anion Gap (12-20) BUN (9-16) mg/dL Creatinine (0.5-1.4) mg/dL Estim Creat Clear Calc Estimated GFR Random Glucose (60-115) mg/dL Calcium (8.4-10.2) mg/dL Magnesium (1.6-2.6) mg/dL Total Bilirubin (0.0-1.0) mg/dL AST (5-37) U/L ALT (0-40) U/L Alkaline Phosphatase (39-117) U/L Total Protein (6.5-8.0) g/dL Albumin (3.5-5.0) g/dL Lipase (8-78) U/L Urine Color Dark Yellow Urine Appearance Cloudy Urine pH 5.5 (5.0-9.0) Ur Specific [place] 1.025 (1.005-1.025) Urine Protein 30 (1+) H (Neg-Trace) mg/dL Urine Glucose (UA) Negative (Negative) mg/dL Urine Ketones Trace (Negative) mg/dL Urine Blood Negative (Negative) Urine Nitrite Negative (Negative) Ur Leukocyte Esterase Trace H (Negative) Urine RBC 6-10 H (0-2) /HPF Urine WBC 0-5 (0-5) /HPF Ur Squamous Epith Cells 6-10 (0-2) /HPF Urine Bacteria None Seen (None Seen) Hyaline Casts 6-10 (0-2) /LPF Influenza Type A (PCR) NEGATIVE (Negative) Influenza Type B (PCR) NEGATIVE (Negative) RSV RNA Qual (PCR) NEGATIVE (Negative) SARS-CoV-2 RNA (RT-PCR) NEGATIVE (Negative) <ARNOLD Mcgrath - Last Filed: 01/16/23 14:18> Lab Results 01/16/23 01/16/23 01/16/23 Range/Units 14:38 14:38 14:38 WBC 15.0 H (4.8-10.8) X10*3/uL RBC 5.88 H (4.60-5.80) X10*6/uL Hgb 17.9 (14.0-18.0) g/dl Hct 49.0 (42.0-52.0) % MCV 83.3 (80.0-98.0) fL MCH 30.4 (27.0-33.0) pg MCHC 36.5 H (31.0-36.0) g/dl RDW 11.7 (11.0-16.0) % Plt Count 321 (160-400) X10*3/uL MPV 8.7 L (9.4-12.4) fL Immature Gran % (Auto) 0.4 (0.0-0.4) % Neut % (Auto) 71.2 (45-73) % Lymph % (Auto) 18.9 L (20-40) % Campbell % (Auto) 9.0 (2-11) % Eos % (Auto) 0.3 (0-4) % Baso % (Auto) 0.2 (0-2) % Lymph # (Auto) 2.8 (1.2-4.9) X10*3/uL Campbell # (Auto) 1.4 H (0.1-1.2) X10*3/uL Eos # (Auto) 0.0 (0.0-0.4) X10*3/uL Baso # (Auto) 0.0 (0.0-0.2) X10*3/uL Abs Immat Gran (auto) 0.06 H (0.00-0.03) X10*3/uL Absolute Neuts (auto) 10.7 H (2.0-8.3) x10*3/uL Absolute Nucleated RBC 0.000 (0.0-0.012) X10*3/uL Nucleated RBC % (auto) 0.0 (0.0-0.2) /100WBC PT 12.2 (10.0-13.1) SEC INR 1.1 (0.9-1.1) Sodium 134 L (135-145) mmol/L Potassium 3.4 (3.3-5.1) mmol/L Chloride 92 L (96-108) mmol/L Carbon Dioxide 24 (22-29) mmol/L Anion Gap 21 H (12-20) BUN 35 H (9-16) mg/dL Creatinine 1.78 H (0.5-1.4) mg/dL Estim Creat Clear Calc 70.7 Estimated GFR 46 Random Glucose 125 H (60-115) mg/dL Calcium 10.4 H (8.4-10.2) mg/dL Magnesium 2.2 (1.6-2.6) mg/dL Total Bilirubin 2.3 H (0.0-1.0) mg/dL AST 19 (5-37) U/L ALT 38 (0-40) U/L Alkaline Phosphatase 112 (39-117) U/L Total Protein 8.5 H (6.5-8.0) g/dL Albumin 5.4 H (3.5-5.0) g/dL Lipase 17 (8-78) U/L Urine Color Urine Appearance Urine pH (5.0-9.0) Ur Specific [place] (1.005-1.025) Urine Protein (Neg-Trace) mg/dL Urine Glucose (UA) (Negative) mg/dL Urine Ketones (Negative) mg/dL Urine Blood (Negative) Urine Nitrite (Negative) Ur Leukocyte Esterase (Negative) Urine RBC (0-2) /HPF Urine WBC (0-5) /HPF Ur Squamous Epith Cells (0-2) /HPF Urine Bacteria (None Seen) Hyaline Casts (0-2) /LPF Influenza Type A (PCR) (Negative) Influenza Type B (PCR) (Negative) RSV RNA Qual (PCR) (Negative) SARS-CoV-2 RNA (RT-PCR) (Negative) 01/16/23 01/16/23 Range/Units 14:38 18:57 WBC (4.8-10.8) X10*3/uL RBC (4.60-5.80) X10*6/uL Hgb (14.0-18.0) g/dl Hct (42.0-52.0) % MCV (80.0-98.0) fL MCH (27.0-33.0) pg MCHC (31.0-36.0) g/dl RDW (11.0-16.0) % Plt Count (160-400) X10*3/uL MPV (9.4-12.4) fL Immature Gran % (Auto) (0.0-0.4) % Neut % (Auto) (45-73) % Lymph % (Auto) (20-40) % Campbell % (Auto) (2-11) % Eos % (Auto) (0-4) % Baso % (Auto) (0-2) % Lymph # (Auto) (1.2-4.9) X10*3/uL Campbell # (Auto) (0.1-1.2) X10*3/uL Eos # (Auto) (0.0-0.4) X10*3/uL Baso # (Auto) (0.0-0.2) X10*3/uL Abs Immat Gran (auto) (0.00-0.03) X10*3/uL Absolute Neuts (auto) (2.0-8.3) x10*3/uL Absolute Nucleated RBC (0.0-0.012) X10*3/uL Nucleated RBC % (auto) (0.0-0.2) /100WBC PT (10.0-13.1) SEC INR (0.9-1.1) Sodium (135-145) mmol/L Potassium (3.3-5.1) mmol/L Chloride (96-108) mmol/L Carbon Dioxide (22-29) mmol/L Anion Gap (12-20) BUN (9-16) mg/dL Creatinine (0.5-1.4) mg/dL Estim Creat Clear Calc Estimated GFR Random Glucose (60-115) mg/dL Calcium (8.4-10.2) mg/dL Magnesium (1.6-2.6) mg/dL Total Bilirubin (0.0-1.0) mg/dL AST (5-37) U/L ALT (0-40) U/L Alkaline Phosphatase (39-117) U/L Total Protein (6.5-8.0) g/dL Albumin (3.5-5.0) g/dL Lipase (8-78) U/L Urine Color Dark Yellow Urine Appearance Cloudy Urine pH 5.5 (5.0-9.0) Ur Specific [place] 1.025 (1.005-1.025) Urine Protein 30 (1+) H (Neg-Trace) mg/dL Urine Glucose (UA) Negative (Negative) mg/dL Urine Ketones Trace (Negative) mg/dL Urine Blood Negative (Negative) Urine Nitrite Negative (Negative) Ur Leukocyte Esterase Trace H (Negative) Urine RBC 6-10 H (0-2) /HPF Urine WBC 0-5 (0-5) /HPF Ur Squamous Epith Cells 6-10 (0-2) /HPF Urine Bacteria None Seen (None Seen) Hyaline Casts 6-10 (0-2) /LPF Influenza Type A (PCR) NEGATIVE (Negative) Influenza Type B (PCR) NEGATIVE (Negative) RSV RNA Qual (PCR) NEGATIVE (Negative) SARS-CoV-2 RNA (RT-PCR) NEGATIVE (Negative) <Abraham Hart MD - Last Filed: 01/16/23 19:35> Discharge Plan Discharge Clinical Impression: Cyclic vomiting syndrome, Cannabis abuse with cannabis-induced disorder <ARNOLD Mcgrath - Last Filed: 01/16/23 14:18> Patient Disposition: Home, Self-Care <ARNOLD Mcgrath - Last Filed: 01/16/23 14:18> Instructions: Acute Nausea and Vomiting (ED), Cannabis Abuse (ED) <ARNOLD Mcgrath Last Filed: 01/16/23 14:18> Additional Instructions: Drink plenty of fluids Stop using cannabis Medicine for nausea and anxiety as prescribed <ARNOLD Mcgrath Last Filed: 01/16/23 14:18> Prescriptions: New lorazepam [Ativan] 1 mg tablet 1 mg PO BID PRN (Reason: anxiety) Qty: 14 0RF ondansetron 4 mg tablet,disintegrating 4 mg PO Q6-8H PRN (Reason: nausea and vomiting) Qty: 7 0RF No Action ondansetron 4 mg tablet,disintegrating 4 mg PO Q6-8H PRN (Reason: Nausea And Vomiting) Qty: 10 0RF lorazepam [Ativan] 1 mg tablet 1 mg PO BEDTIME PRN (Reason: Anxiety/vomiting) Qty: 10 0RF ondansetron 4 mg tablet,disintegrating 4 mg PO Q6-8H PRN (Reason: nausea and vomiting) Qty: 10 0RF <ARNOLD Mcgrath - Last Filed: 01/16/23 14:18>
[2023-01-16 14:47] LABS: MANUAL DIFF FLAG NO
[2023-01-16 14:51] LABS: Basophils Percent Auto 0.2 % (0-2); Eosinophils Percent Auto 0.3 % (0-4); Hemoglobin 17.9 g/dl (14.0-18.0); Imm Gran Abs Auto 0.06 X10*3/uL (0.00-0.03); Imm Gran Pct Auto 0.4 % (0.0-0.4); Lymphocytes Absolute Auto 2.8 X10*3/uL (1.2-4.9); Lymphocytes Percent Auto 18.9 % (20-40); Mean Corpuscular HGB Conc 36.5 g/dl (31.0-36.0); Mean Corpuscular Hemoglobin 30.4 pg (27.0-33.0); Mean Corpuscular Volume 83.3 fL (80.0-98.0); Mean Platelet Volume 8.7 fL (9.4-12.4); Monocytes Absolute Auto 1.4 X10*3/uL (0.1-1.2); Neutrophils Absolute Auto 10.7 x10*3/uL (2.0-8.3); Neutrophils Percent Auto 71.2 % (45-73); Platelet Count 321 X10*3/uL (160-400); Red Blood Count 5.88 X10*6/uL (4.60-5.80); Red Cell Distribution Width 11.7 % (11.0-16.0)
[2023-01-16 14:56] LABS: INTERNATIONAL NORM RATIO 1.1 (0.9-1.1); Prothrombin Time 12.2 SEC (10.0-13.1)
[2023-01-16] MEDS: Ketorolac Tromethamine 30 MG/ML VIAL IM (15:05)
[2023-01-16] MEDS: Ondansetron ODT 4 MG TAB.RAPDIS TRANSLINGU (15:05)
[2023-01-16 15:25] LABS: Alanine Aminotransferase 38 U/L (0-40); Albumin Level 5.4 g/dL (3.5-5.0); Alkaline Phosphatase 112 U/L (39-117); Anion Gap 21 (12-20); Aspartate Amino Transferase 19 U/L (5-37); Bilirubin Total 2.3 mg/dL (0.0-1.0); Blood Urea Nitrogen 35 mg/dL (9-16); Calcium 10.4 mg/dL (8.4-10.2); Carbon Dioxide 24 mmol/L (22-29); Chloride 92 mmol/L (96-108); Creatinine Clr Calc Pharmacy 70.7; Estimated Glomerular Filt Rate 46; Glucose Random 125 mg/dL (60-115); Lipase 17 U/L (8-78); Magnesium 2.2 mg/dL (1.6-2.6); Potassium 3.4 mmol/L (3.3-5.1); Sodium 134 mmol/L (135-145); Total Protein 8.5 g/dL (6.5-8.0)
[2023-01-16 15:28] LABS: Influenza A PCR NEGATIVE (Negative); Influenza B PCR NEGATIVE (Negative); Resp Syncy Virus RNA Qual PCR NEGATIVE (Negative); SARS COV2 PCR INHOUSE NEGATIVE (Negative)
[2023-01-16 17:04] VITALS: RESP 18
[2023-01-16] MEDS: Morphine Sulfate 4 MG/ML CARTRIDGE IVPUSH (17:04)
[2023-01-16] MEDS: LORazepam 2 MG/ML VIAL IVPUSH (17:05)
[2023-01-16] MEDS: 0.9 % Sodium Chloride 1,000 ML 999 ML IV (17:05)
[2023-01-16] MEDS: Prochlorperazine Edisylate 10 MG/2 ML VIAL IVPUSH (17:05)
--- NOTE | 2023-01-16 17:21 | PC.NURSE ---
pt a&ox4, pleasant, calm, and cooperative. pt changed over, IV placed and medicated per dec. pt already sts pain meds effective. currently resting quietly on stretcher, watching tv. awaiting CT scan araseli. wctm
[2023-01-16 18:00] VITALS: BP 123/63; PULSE 85; RESP 16; TEMP 37.2; O2SAT 97
[2023-01-16 19:06] LABS: Appearance Urine Cloudy; Color Urine Dark Yellow; Glucose Urine UA Negative (Negative); Leukocyte Esterase Urine Trace (Negative); Nitrite Urine Negative (Negative); PH 5.5 (5.0-9.0); Specific Gravity - Urine 1.025 (1.005-1.025); UMIC TRIGGER UACC YES; Urine Blood Negative (Negative); Urine Ketones Trace mg/dL (Negative); Urine Protein 30 (1+) mg/dL (Neg-Trace)
[2023-01-16 19:20] LABS: Bacteria Urine None Seen (None Seen); WBC Urine 0-5 /HPF (0-5)
== END 2023-01-16 19:58 | disposition home or self-care (01) ==
PROVIDERS: Physician Assistant Medical; Emergency Provider Internal Medicine
DX: F12.188 Cannabis abuse with other cannabis-induced disorder (principal); R11.15 Cyclical vomiting syndrome unrelated to migraine; R10.2 Pelvic and perineal pain; Z20.822 Contact with and (suspected) exposure to COVID-19; Z20.828 Contact with and (suspected) exposure to other viral communicable diseases; Z79.899 Other long term (current) drug therapy
CPT/HCPCS: 0241U; 36415; 74176; 80053; 81001; 83690; 83735; 85025; 85610; 96361; 96374; 96375; 99284; 99285; J1885; J2060; J2270

== ENCOUNTER 2023-08-03 10:02 | Outpatient (AMB) | payer MEDICAID, SELFPAY ==
[2023-08-03 10:12] VITALS: BMI 29.4
--- NOTE | 2023-08-03 10:12 | A.OFFVIS_ITS ---
Intake Vital Signs 08/03/23 10:12 Height 5 ft 10 in Weight 205 lb BMI 29.4 Handedness Right Intake Visit Reasons: mass of kojo power Intake Note: Miguel Angel is a 27 year old right hand dominant male who presents with complaints of a mass on the left hand at the base of the thumb. Patient was seen on 09/14/[address] Hightower ganglion cyst was drained. He states pain came after aspiration and pain has been getting worse. He has swelling with use of left hand. States numbness in his thump that radiates into his small finger. Allergies bee pollen [bee stings] Allergy (Unknown, Verified 08/17/20 00:57) Unknown HPI mass of kojo power HPI Details 28-year-old right hand dominant male who returns to the office today for left hand ganglion cyst. He was last seen on 09/14/[address] Hightower where his ganglion cyst was drained. He reports his pain returned about 1 week after aspiration and has been worsening since then. He also c/o swelling with the use of his left hand as well as numbness and tingling in his thumb which radiates into his small finger. [facility] Medical History No active medical problems Social History Alcohol intake: never Patient Tobacco Use Status: Never used Tobacco Substance Use Type: Marijuana Current occupational status: unemployed Review of Systems Const All systems reviewed & are unremarkable except as noted in HPI and below Physical Exam Vital Signs: BMI result Body Mass Index 29.4 Extrem Other: Left hand: Skin intact. There is a marble sized mass along the dorsal aspect of the wrist in line with the the thumb. The mass is firm and mobile. No tenderness to palpation. NVI. Results Reviewed Results Reviewed: EMG/NCS 12/2022: Mild cubital tunnel syndrome Assessment & Plan Assessment & Plan (1) Ganglion cyst of dorsum of left wrist: Code(s): M67.432 - Ganglion, left wrist Plan We discussed options which include conservative vs operative treatment. Since this has been present for several months and it is causing discomfort the decision was made to undergo surgical intervention. We discussed risk, benefits and alternatives. Risk including but not limited to infection, stiffness, recurrence of mass and pain. He does understand all this and would like to proceed with excision biopsy left thumb cyst with Dr. Hightower. He will be booked accordingly. I did eplain to him the findings on the EMG study. Since his symptoms are not constant, he is not interested in pursuing surgery for the elbow. I did explain when the symptoms become more consistent , may be the time to discuss surgery. Patient Instructions: Scribed for Lenny Morales PA-C, by Dioni Balbuena medical charge entry specialist, on 08/03/2023 at 10:00 AM LA. Jackson, Lenny Morales PA-C, have personally reviewed and agree with the information entered by the scribe. Coding Level of Care Code Est Pt Level 3 (40670) Diagnoses Ganglion cyst of dorsum of left wrist M67.432
== END 2023-08-03 10:52 | disposition home or self-care (01) ==
PROVIDERS: PCP Nurse Practitioner Family; Visit Provider Physician Assistant
DX: M67.432 Ganglion, left wrist (principal)
CPT/HCPCS: 99213

== ENCOUNTER → 2023-08-03 10:02 | Outpatient (BNVA) | payer MEDICAID, SELFPAY | PROVIDERS: PCP Nurse Practitioner Family; Visit Provider Physician Assistant | DX: M67.432 Ganglion, left wrist (principal) | CPT/HCPCS: 99212 ==

== ENCOUNTER 2023-09-01 06:04 | Day surgery (SDC) | payer MEDICAID, SELFPAY ==
[2023-08-30 07:12] VITALS: BMI 29.4
[2023-09-01] VITALS (8 sets, daily range): BP systolic 127–148; BP diastolic 64–87; PULSE 63–80; RESP 16–18; TEMP 36.2–36.4; O2SAT 98–100; BMI 30.2
[2023-09-01] MEDS: Lactated Ringers 1,000 ML 80 ML IVCONT (06:34)
--- NOTE | 2023-09-01 10:00 | P.OP_ITS ---
Operative Note Operative Note Date of Service: 09/01/23 Narrative: Operative Note Narrative: Preop diagnosis: 1. Left dorsal wrist ganglion, dorsal to the snuffbox Postop diagnosis: Same Procedure: left dorsal wrist ganglion excisional biopsy Surgeon: Ban Hightower MD Anesthesia: General Findings: 1. left dorsal wrist ganglion approximately 2cm indiameter, filled with clear viscous fluid consistent with a ganglion. The ganglion was just distal to the snuffbox, with the EPL tendon passing over it. Tourniquet time: Twenty-four minutes EBL: 5.0 ml Specimen: dorsal wrist ganglion Drains: None Complications: None Disposition: Brought to the recovery room in stable condition Plan: Follow-up in 10-14 days for wound check, suture removal and to check pathology Indications: The patient is 28 years old with a left dorsal wrist ganglion just distal to the anatomic snuffboxthat has been unresponsive to nonoperative management. The risks and benefits of operative treatment, including but not limited to risk of damage to blood vessels, nerves, tendons, infection, recurrence, persistent pain or numbness, or need for further surgery were discussed with the patient and they wished to proceed with surgery. Procedure: Once consent was obtained patient was brought back to the operating suite and placed in the operating table in a supine position. Perioperative antibiotics and anesthesia was administered by the anesthesia team. A elgin rniquet was applied to the proximal aspect of the left upper extremity and the limb was prepped and draped in a standard surgical fashion. The limb was elevated exsanguinated with Esmarch bandage and the tourniquet inflated to 250 mm of mercury for a total tourniquet time of 24 minutes. A 2.5 cm lazy S incision was made over the dorsal aspect of the left hand/ wrist centered over the EPL tendon just distal to the snuffbox.. Ganglion was located Over and distal to the anatomic snuffbox.. The incision was made with a #15 blade through the skin to the subcutaneous tissues. Tenotomy scissors were then used to carefully dissect down through the subcutaneous layer to the dorsal wrist ganglion. It measured approximately To cm in diameter , with the EPL tendon passing directly over it, and was filled with clear viscous fluid consistent with a ganglion. It was carefully mobilized from the surrounding soft tissues using tenotomy and iris scissors with care being taken to protect the EPL tendon and the neurovascular structures. There was a large vein and a branch of the superficial radial nerve passing directly over the ganglion. These were mobilized and protected during the case. The ganglion was carefully mobilized from the surrounding tissues down to its stalk.. It's stalk passed Beneath the EPL tendon, and appeared to be coming from the 1st CMC joint.. The Bipolar electrocauterywas used to cauterize the stalk to reduce risk of recurrence., and the ganglion was cut free and removed to the back table to be sent for histopathologic review. No further masses were identified. At this point the tourniquet was deflated and hemostasis obtained with a brief period of local pressure and bipolarelectrocautery. Wound was irrigated with normal saline. The skin edges were reapproximated with some 5-0 Prolene suture. The wound was infiltrated with some 0.5% plain ropivacaine for postop pain control and a sterile dressing was applied. The patient appears to have tolerated the procedure well and with no complications. All digits were well vascularized conclusion of the case.
--- NOTE | 2023-09-01 10:00 | MHC.SHP ---
Pre-Procedural Eval Section A Date of Service: 09/01/23 The patient is an INPATIENT: No Changes since office visit: No Cold of Flu in the past 2 weeks, No New Medical Problems, No Changes in Medication and No Patient answered all questions The History & Physical has been completed within 30 days and I have reviewed it.: Yes Section B Chief Complaint: Ganglion, left wrist Allergies: Allergies Allergy/AdvReac Type Severity Reaction Status Date / Time acetaminophen [From Tylenol] Allergy Unknown Rash Verified 09/01/23 06:11 bee pollen [bee stings] Allergy Unknown Unknown Verified 09/01/23 06:11 ibuprofen Allergy Unknown Rash Verified 09/01/23 06:11 Plan I have reviewed the history and physical and performed a pertinent physical examination on my patient. No changes have occurred unless specified. Time Spent With Patient Time: Total time managing care of this patient today ____ minutes.
[2023-09-01] MEDS: oxyCODONE HCl Immed Release 5 MG TABLET PO (10:18)
--- NOTE | 2023-09-01 14:27 | HO.ANESPROP2 ---
HPI - Anesthesia Eval Consult details Narrative: 28-year-old male presenting for ganglion cyst resection under general anesthesia PMFSH Active Problems Active Problems: All Active Problems (Updated 01/17/23 @ 00:05 by Igor Serra) Numbness and tingling in both hands (Acute) Ganglion cyst of dorsum of left wrist (Acute) Past Medical History Medical History No active medical problems Family History Family history of problems with anesthesia: No Surgical History History of Problems with Anesthesia: No Social History Social History Alcohol intake: never Patient Tobacco Use Status: Never used Tobacco Use of substances other than those prescribed or required for medical reasons: Yes Substance Use Type: Marijuana Substance Use Type Other:: Smokes marijuana daily Are you DNR?: No Advance Directives: No Advance Directives Information Provided: Yes Current occupational status: unemployed Meds Allergies Allergy/AdvReac Type Severity Reaction Status Date / Time acetaminophen [From Tylenol] Allergy Unknown Rash Verified 09/01/23 06:11 bee pollen [bee stings] Allergy Unknown Unknown Verified 09/01/23 06:11 ibuprofen Allergy Unknown Rash Verified 09/01/23 06:11 Exam Height,Weight and Vital Signs: Height 5 ft 10 in Weight 210 lb 6 oz Last Vital Signs Temp 97.2 F 09/01/23 10:20 Pulse 80 09/01/23 10:20 Resp 16 09/01/23 10:20 BP 132/64 09/01/23 10:20 Pulse Ox 100 09/01/23 10:20 O2 Del Method Room Air 09/01/23 10:20 O2 Flow Rate 2 09/01/23 09:25 Airway Mallampati Class: II TM Dist: >3cm Neck ROM: Full Loose/Missing/Broken Teeth: No Assessment and Plan Assessment Anesthesia Assessment: Anesthesia Plan Discussed and Chart Reviewed Final Anesthetic Review Family History of Problems with Anesthesia: No History of Problems with Anesthesia: No NPO: Yes ASA Class: II Final Preanesthetic Review: No Changes in Pt Med Stat, Meds/Allgs Chart Reviewed, Consent Obtained/Reviewed and Anes Risks/Benef Reviewed Patient Risk: Low Procedure Risk: Low Anesthetic Plan Anesthetic Plan: GA Disposition: Standard PACU
== END 2023-09-01 11:02 | disposition home or self-care (01) ==
PROVIDERS: PCP Nurse Practitioner Family; Visit Provider Orthopaedic Surgery
PROC: (CPT 25111; principal; 2023-09-01 07:30)
DX: M67.432 Ganglion, left wrist (principal); R20.0 Anesthesia of skin; R20.2 Paresthesia of skin; Z88.8 Allergy status to other drugs, medicaments and biological substances; F12.90 Cannabis use, unspecified, uncomplicated
CPT/HCPCS: 25111; 88304; J0690; J1100; J1885; J2250; J2405; J2704; J3010

== ENCOUNTER 2023-09-15 13:30 | Outpatient (AMB) | payer MEDICAID, SELFPAY ==
--- NOTE | 2023-09-15 13:32 | A.OFFVIS_ITS ---
Intake Intake Visit Reasons: PO-Lt Ganglion Exc 09/01 Intake Note: Miguel Angel is a 27 year old right hand dominant male who presents today for a post op appointment s/p left ganglion Exc 09/01/23 AR. Patient reports he is doing well just having a bit trouble lifting his thumb up without his hand shaking. Allergies acetaminophen [From Tylenol] Allergy (Unknown, Verified 09/15/23 13:37) Rash bee pollen [bee stings] Allergy (Unknown, Verified 09/15/23 13:37) Unknown ibuprofen Allergy (Unknown, Verified 09/15/23 13:37) Rash HPI PO-Lt Ganglion Exc 09/01 HPI Details 28-year-old right hand dominant male who presents in the office today 2 weeks status post left dorsal wrist ganglion excisional biopsy, which was performed on 09/01/[address] Hightower. The patient reports he is doing well and is having a bit of trouble lifting his thumb up with out his hand shaking. [facility] Medical History No active medical problems Social History Alcohol intake: never Patient Tobacco Use Status: Never used Tobacco Substance Use Type: Marijuana Current occupational status: unemployed Review of Systems Const All systems reviewed & are unremarkable except as noted in HPI and below Physical Exam Const General: cooperative, healthy appearing and no acute distress Resp Effort & Inspection: normal respiratory effort and able to speak in complete sentences Cardio Rate: regular rate Peripheral pulses: Peripheral pulses 2+ throughout GI Palpation (GI): Soft to palpation Skin Lesions: no lesions Rashes: no rashes Extrem Other: Left wrist: Left dorsal incision site at the base of the thumb is clean, dry, and intact. No surrounding erythema or drainage. No signs of infection. Able to make a full fist. Able to perform full thumb flexion and extension to end range. NVI. Assessment & Plan Assessment & Plan (1) Ganglion cyst of dorsum of left wrist: Comment: Left dorsal wrist ganglion excisional biopsy 09/01/2023 AR Code(s): M67.432 - Ganglion, left wrist Plan Mr. Hankins is a 28-year-old right hand dominant male who presents in the office today 2 weeks status post left dorsal wrist ganglion excisional biopsy, which was performed on 09/01/[address] Hightower. The patient reports he is doing well and is having a bit of trouble lifting his thumb up with out his hand shaking. 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 He will be referred to occupational therapy to work on strengthening. He has agreed to attend. Follow up will be in 3-4 weeks, or sooner if needed. Orders: Orders OT Evaluation and Treatment Today M67.432 - Ganglion, left wrist Patient Instructions: Scribed for Anushka Bah PA-C by Prudence Candelario electromedical equipment technician, on 09/15/2023 at 1:35 pm, EST. Coding Level of Care Code Global (73846) Diagnoses Ganglion cyst of dorsum of left wrist M67.432
== END 2023-09-15 13:56 | disposition home or self-care (01) ==
PROVIDERS: PCP Nurse Practitioner Family; Visit Provider Physician Assistant
DX: M67.432 Ganglion, left wrist (principal)
CPT/HCPCS: 99024

== ENCOUNTER → 2023-09-15 13:30 | Outpatient (BNVA) | payer MEDICAID, SELFPAY | PROVIDERS: PCP Nurse Practitioner Family; Visit Provider Physician Assistant | DX: M67.432 Ganglion, left wrist (principal) | CPT/HCPCS: 99212 ==

== ENCOUNTER 2024-01-12 12:40 | Outpatient (REF) | payer MEDICAID, SELFPAY ==
[2024-01-12 13:21] LABS: MANUAL DIFF FLAG NO
[2024-01-12 13:28] LABS: Basophils Percent Auto 0.4 % (0-2); Eosinophils Absolute Auto 0.1 X10*3/uL (0.0-0.4); Eosinophils Percent Auto 1.1 % (0-4); Imm Gran Abs Auto 0.03 X10*3/uL (0.00-0.03); Imm Gran Pct Auto 0.4 % (0.0-0.4); Lymphocytes Absolute Auto 2.9 X10*3/uL (1.2-4.9); Lymphocytes Percent Auto 38.5 % (20-40); Mean Corpuscular HGB Conc 35.7 g/dl (31.0-36.0); Mean Corpuscular Hemoglobin 30.6 pg (27.0-33.0); Mean Corpuscular Volume 85.7 fL (80.0-98.0); Mean Platelet Volume 9.1 fL (9.4-12.4); Monocytes Absolute Auto 0.7 X10*3/uL (0.1-1.2); Monocytes Percent Auto 9.4 % (2-11); Neutrophils Absolute Auto 3.8 x10*3/uL (2.0-8.3); Neutrophils Percent Auto 50.2 % (45-73); Platelet Count 261 X10*3/uL (160-400); Red Cell Distribution Width 12.4 % (11.0-16.0); White Blood Count 7.5 X10*3/uL (4.8-10.8)
[2024-01-12 14:09] LABS: Alanine Aminotransferase 62 U/L (0-40); Albumin Level 4.5 g/dL (3.5-5.0); Alkaline Phosphatase 91 U/L (39-117); Amylase 102 U/L (28-100); Anion Gap 9 (12-20); Aspartate Amino Transferase 33 U/L (5-37); Bilirubin Total 0.7 mg/dL (0.0-1.0); Blood Urea Nitrogen 11 mg/dL (9-16); Calcium 9.3 mg/dL (8.4-10.2); Carbon Dioxide 28 mmol/L (22-29); Chloride 106 mmol/L (96-108); Estimated Glomerular Filt Rate > 60; Glucose Random 91 mg/dL (60-115); Iron 102 mcg/dL (45-160); Lipase 23 U/L (8-78); Percent Iron Saturation 38 % (15-50); Potassium 3.8 mmol/L (3.3-5.1); Sodium 139 mmol/L (135-145); Total Iron Binding Capacity 271 mcg/dL (228-428); Total Protein 7.5 g/dL (6.5-8.0); Unsaturated Iron Binding 169 ug/dL
[2024-01-13 14:49] LABS: Immunoglobulin A 189 mg/dL (47-310); Transglutaminase IgA <1.0 U/mL
== END 2024-01-12 12:41 | disposition home or self-care (01) ==
LOC: HO.HHCL 12:40
PROVIDERS: Visit Provider Nurse Practitioner Family
DX: K92.1 Melena (principal)
CPT/HCPCS: 36415; 80053; 82150; 82784; 83540; 83690; 85025; 86364

== ENCOUNTER 2024-01-23 09:55 | Emergency (ER) | payer MEDICAID, SELFPAY ==
[2024-01-23 10:20] VITALS: BP 140/94; PULSE 110; RESP 18; TEMP 36.8; O2SAT 97; BMI 25.8
[2024-01-23] MEDS: Ondansetron ODT 4 MG TAB.RAPDIS TRANSLINGU (10:26)
[2024-01-23 11:26] LABS: MANUAL DIFF FLAG NO
[2024-01-23 11:28] LABS: Basophils Percent Auto 0.2 % (0-2); Eosinophils Percent Auto 0.2 % (0-4); Hematocrit 46.9 % (42.0-52.0); Imm Gran Abs Auto 0.04 X10*3/uL (0.00-0.03); Imm Gran Pct Auto 0.3 % (0.0-0.4); Lymphocytes Absolute Auto 2.8 X10*3/uL (1.2-4.9); Lymphocytes Percent Auto 21.7 % (20-40); Mean Corpuscular HGB Conc 36.2 g/dl (31.0-36.0); Mean Corpuscular Hemoglobin 30.9 pg (27.0-33.0); Mean Corpuscular Volume 85.3 fL (80.0-98.0); Mean Platelet Volume 8.6 fL (9.4-12.4); Monocytes Absolute Auto 1.1 X10*3/uL (0.1-1.2); Monocytes Percent Auto 8.5 % (2-11); Neutrophils Absolute Auto 8.8 x10*3/uL (2.0-8.3); Neutrophils Percent Auto 69.1 % (45-73); Platelet Count 302 X10*3/uL (160-400); Red Cell Distribution Width 11.9 % (11.0-16.0); White Blood Count 12.8 X10*3/uL (4.8-10.8)
[2024-01-23 11:29] LABS: Appearance Urine Clear; Color Urine Dark Yellow; Glucose Urine UA Negative (Negative); Leukocyte Esterase Urine Trace (Negative); Nitrite Urine Negative (Negative); Specific Gravity - Urine 1.025 (1.005-1.025); UMIC TRIGGER UACC YES; Urine Blood Trace (Negative); Urine Ketones 15 mg/dL (Negative); Urine Protein 30 (1+) mg/dL (Neg-Trace)
[2024-01-23 11:32] LABS: Bacteria Urine None Seen (None Seen); Hyaline Casts Urine 0-2 /LPF (0-2); WBC Urine 0-5 /HPF (0-5)
[2024-01-23 11:44] LABS: Alanine Aminotransferase 32 U/L (0-40); Alkaline Phosphatase 91 U/L (39-117); Anion Gap 15 (12-20); Aspartate Amino Transferase 18 U/L (5-37); Bilirubin Total 1.8 mg/dL (0.0-1.0); Blood Urea Nitrogen 18 mg/dL (9-16); Calcium 10.2 mg/dL (8.4-10.2); Carbon Dioxide 28 mmol/L (22-29); Chloride 96 mmol/L (96-108); Estimated Glomerular Filt Rate > 60; Glucose Random 120 mg/dL (60-115); Potassium 3.6 mmol/L (3.3-5.1); Sodium 135 mmol/L (135-145); Total Protein 8.9 g/dL (6.5-8.0)
== END 2024-01-23 17:21 | disposition left against medical advice (07) ==
PROVIDERS: Emergency Provider Emergency Medicine
DX: R11.10 Vomiting, unspecified (principal)
CPT/HCPCS: 36415; 80053; 81001; 85025; 99282; 99283

== ENCOUNTER 2024-02-15 10:51 | Outpatient (AMB) | payer MEDICAID, SELFPAY ==
[2024-02-15 10:56] VITALS: BMI 25.8
--- NOTE | 2024-02-15 10:56 | MHC.OFFVIS ---
Vital Signs 02/15/24 10:56 Height 5 ft 10 in Weight 180 lb BMI 25.8 Intake Visit Reasons: OV - Left Wrist Ganglion Cyst-Returned s/p Surgery Intake Note: Miguel Angel 28 yr old male presents today for his left s/p left ganglion Exc 09/01/23 AR. States his cyst is growing back. He would like to discuss aspiration vs surgery again. States it started to grow back a week after surgery. Allergies acetaminophen [From Tylenol] Allergy (Unknown, Verified 02/15/24 10:57) Rash bee pollen [bee stings] Allergy (Unknown, Verified 02/15/24 10:57) Unknown ibuprofen Allergy (Unknown, Verified 02/15/24 10:57) Rash HPI HPI OV - Left Wrist Ganglion Cyst-Returned s/p Surgery: Details: Miguel Angel Hankins is a 28 year old right hand dominant man who returns 5 months status post left dorsal wrist ganglion excisional biopsy. DOS: 09/01/2023. Overall he states he has been good. He reports the cyst has returned and is increasing in size. States this began about a week after the surgery. 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 [facility] Medical History No active medical problems Social History Alcohol intake: never Patient Tobacco Use Status: Never used Tobacco Substance Use Type: Marijuana Current occupational status: unemployed Review of Systems Const All systems reviewed & are unremarkable except as noted in HPI and below Physical Exam Vital Signs: BMI result Body Mass Index 25.8 Const General: cooperative, healthy appearing and no acute distress Orientation/consciousness: patient oriented x3 HEENT Head: Yes normocephalic and Yes atraumatic Eyes EOM: EOMs intact bilaterally Resp Effort & Inspection: normal respiratory effort and able to speak in complete sentences Cardio Jugular venous distension: no JVD Skin General skin exam: turgor normal Rashes: no rashes Neuro General: patient oriented x3 Extrem Other: Evaluation of Left Upper Extremity: Patient was alert oriented and in no acute distress The patient appears to have a recurrence of his left dorsal wrist ganglion. It appears to be situated within the anatomic snuffbox and measures about 1.5 cm in diameter. It is just radial to the surgical incision site. Is nontender. He has full active range of motion of the thumb, and function of the EPL and EPB tendons. He can make a fist and extend all of his digits. Neuro: Median, ulnar, radial nerves motor and sensory intact. Vascular: Cap refill brisk. Assessment & Plan Assessment & Plan (1) Ganglion cyst of dorsum of left wrist: Comment: Left dorsal wrist ganglion excisional biopsy 09/01/2023 AR Code(s): M67.432 - Ganglion, left wrist Category: Medical Plan Assessment & plan: 1. Left Dorsal wrist ganglion cyst, recurrence Date of surgery 09/01/2023 Approximately 1.5 cm, situated again within the anatomic snuffbox. I educated the patient about this condition I am ordering an MRI of his left hand to further assess the left dorsal wrist cyst and the surrounding structures like the radial artery.. Follow up will be after the MRI is obtained. At that time we can discuss treatment options including likely repeat excision. Scribed by Prudence Candelario certified medical technician assistant, for Dr. Ban Hightower on 02/15/2024 at 11:236 am, EST. Coding Level of Care Code Est Pt Level 3 (22424) Diagnoses Ganglion cyst of dorsum of left wrist M67.432
== END 2024-02-15 11:26 | disposition home or self-care (01) ==
PROVIDERS: PCP Emergency Medicine; Visit Provider Orthopaedic Surgery
DX: M67.432 Ganglion, left wrist (principal)
CPT/HCPCS: 99214

== ENCOUNTER → 2024-02-15 10:51 | Outpatient (BNVA) | payer MEDICAID, SELFPAY | PROVIDERS: PCP Emergency Medicine; Visit Provider Orthopaedic Surgery | DX: M67.432 Ganglion, left wrist (principal) | CPT/HCPCS: 99212 ==

== ENCOUNTER 2024-07-04 10:10 | Outpatient (AMB) | payer MEDICAID, SELFPAY ==
[2024-07-04 10:14] VITALS: BMI 25.8
--- NOTE | 2024-07-04 10:14 | MHC.OFFVIS ---
Vital Signs 07/04/24 10:14 Height 5 ft 10 in Weight 180 lb BMI 25.8 Intake Visit Reasons: OV - Left Wrist Ganglion Cyst-Returned s/p Surgery Intake Note: Miguel Angel 28 year old male presents today for a follow up evaluation s/p left ganglion excision, DOS: 09/01/23, by Dr. Hightower. During last visit it was recommended patient had MRI done however it has not been performed. Patient wishes to have the ganglion aspirated due to discomfort and pressure around the left thumb. Patient states he is not taking anything for pain at this time. He reports on and off numbness and tingling on the left thumb. Allergies acetaminophen [From Tylenol] Allergy (Unknown, Verified 07/04/24 10:26) Rash bee pollen [bee stings] Allergy (Unknown, Verified 07/04/24 10:) Unknown ibuprofen Allergy (Unknown, Verified 07/04/24 10:) Rash HPI HPI OV - Left Wrist Ganglion Cyst-Returned s/p Surgery: Details: Miguel Angel Hankins is a 29 year old right hand dominant man who returns to discuss his recurrent left wrist ganglion cyst. He is S/P excisional biopsy. DOS: 09/01/23. He says this mass returned ~2 months after surgery, and has been increasing in size. He says this mass is causing him discomfort and he would like to discuss an aspiration today. He has a recent MRI ordered but has some issues with his insurance getting this approved. He reports some intermittent & occasional numbness in his hand, but says this usually occurs when he holds his wrist a certain way to avoid any pain. 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 [facility] Medical History No active medical problems Social History Alcohol intake: never Patient Tobacco Use Status: Never used Tobacco Substance Use Type: Marijuana Current occupational status: unemployed Review of Systems Const All systems reviewed & are unremarkable except as noted in HPI and below Physical Exam Vital Signs: BMI result Body Mass Index 25.8 Const General: no acute distress and alert Orientation/consciousness: patient oriented x3 Neuro General: patient oriented x3 Extrem Other: Evaluation of Left Upper Extremity: The patient is alert, oriented, and in no acute distress Neuro: Median, Ulnar, Radial nerves motor and sensory intact and sensation is normal to the tips of all digits Vascular: Cap refill brisk ROM: He has full active range of motion of the thumb, and function of the EPL and EPB tendons. The patient appears to have a recurrence of his left dorsal wrist ganglion. It appears to be situated within the anatomic snuffbox and measures ~1.5 cm in diameter. It is just radial to the surgical incision site. No overlying skin changes Not particularly tender Full active range of motion of the wrist thumb and digits without pain. Psych Appearance: grossly normal Affect: normal affect Attitude: cooperative Assessment & Plan Assessment & Plan (1) Ganglion cyst of dorsum of left wrist: Comment: Left dorsal wrist ganglion excisional biopsy 09/01/2023 AR Code(s): M67.432 - Ganglion, left wrist Category: Medical Plan Assessment & plan: 1. Left Dorsal wrist ganglion cyst, recurrence DOS: 09/01/23 Measuring ~1.5cm in diameter, situated again within the anatomic snuffbox. I educated him about this condition I discussed operative and non-operative treatment options The patient would like to proceed with the ordered MRI prior to discussing a repeat excision He will follow up when the MRI is completed for review Scribed for Ban Hightower MD by Tacos Colmenares medical technologist generalist, on 07/04/24 at 10:30 AM, EST. Coding Level of Care Code Est Pt Level 3 (19279) Diagnoses Ganglion cyst of dorsum of left wrist M67.432
== END 2024-07-04 10:44 | disposition home or self-care (01) ==
PROVIDERS: PCP Emergency Medicine; Visit Provider Orthopaedic Surgery
DX: M67.432 Ganglion, left wrist (principal)
CPT/HCPCS: 99213

== ENCOUNTER → 2024-07-04 10:10 | Outpatient (BNVA) | payer MEDICAID, SELFPAY | PROVIDERS: PCP Emergency Medicine; Visit Provider Orthopaedic Surgery | DX: M67.432 Ganglion, left wrist (principal) | CPT/HCPCS: 99212 ==

== ENCOUNTER 2024-08-21 12:57 | Outpatient (REF) | payer MEDICAID, SELFPAY ==
--- NOTE | ~2024-08-21 | MR_ITS ---
EXAMINATION: MR WRIST WITHOUT AND WITH CONTRAST, LEFT CLINICAL INFORMATION: Left wrist pain and swelling. Surgery in August 2023. COMPARISON: Left hand radiographs dated 06/30/2022. TECHNIQUE: Multisequence MR imaging of the left wrist was obtained before and after the IV administration of 10 mL Gadavist contrast on a high field strength scanner. FINDINGS: TRIANGULAR FIBROCARTILAGE: Attenuation through the radial aspect without a definite full-thickness tear. INTRINSIC LIGAMENTS: Intact. TENDONS/MEDIAN NERVE: Mild extensor carpi ulnaris tendinosis. No transverse tendon tear or tendon retraction. Intact median nerve. ARTICULAR CARTILAGE/BONE: No acute fracture or dislocation. Normal carpal alignment. Intact articular cartilage. No marrow edema or evidence of acute osseous injury. No postcontrast marrow enhancement. JOINT FLUID/SOFT TISSUES: Lobulated synovial recess versus ganglion cyst along the radial aspect of the trapezium measuring approximately 1.3 x 1.8 x 2.4 cm. Minimal peripheral postcontrast enhancement. Findings are consistent with a ganglion cyst. No soft tissue mass or enhancing soft tissue lesion. MR/MR wrist LT wo/w con IMPRESSION: 1. Synovial recess versus ganglion cyst along the radial aspect of the trapezium measuring up to 2.4 cm with minimal peripheral postcontrast enhancement. 2. Attenuation through the radial aspect of the triangular fibrocartilage complex without a definite full-thickness tear. 3. Mild extensor carpi ulnaris tendinosis without a transverse tendon tear or tendon retraction. Electronically signed by: Duc Nance MD 08/31/2024 01:37 PM [facility] [place]
[2024-08-21] MEDS: gadobutroL 10 ML VIAL IVPUSH (13:58)
== END 2024-08-21 12:58 | disposition home or self-care (01) ==
LOC: HO.MRI 12:57
PROVIDERS: Visit Provider Orthopaedic Surgery
DX: M67.432 Ganglion, left wrist (principal)
CPT/HCPCS: 73223; A9585

== ENCOUNTER 2025-01-09 12:55 | Emergency (ER) | payer MEDICAID, SELFPAY ==
[2025-01-09 13:14] VITALS: BP 160/85; PULSE 89; RESP 18; TEMP 36.6; O2SAT 99; BMI 26.8
--- NOTE | 2025-01-09 13:22 | ED_ITS ---
HPI - General Adult General Chief complaint: Abdominal Pain Stated complaint: vomiting / body hurts Time Seen by Provider: 01/09/25 15:33 Source: patient Mode of arrival: ambulatory Limitations: no limitations History of Present Illness ED Provider: Tyler Perea DO HPI narrative: 29-year-old male with past medical history of cannabinoid hyperemesis syndrome who states he cut down on cannabis use approximately 3 weeks ago presents to the ED for 2 days of nausea with multiple episodes of nonbilious vomiting, some diarrhea and diffuse abdominal cramping. He states his symptoms specifically are improved with hot showers. He has been able to tolerate some p.o. at home but his last vomiting episode was shortly prior to my evaluation. He denies any urinary symptoms, difficulty breathing or chest pain. He denies fevers or chills. Related Data Previous Rx's ?Medication ?Instructions ?Recorded ondansetron 4 mg disintegrating 4 mg PO Q6-8H PRN Nausea And 02/24/21 tablet Vomiting #10 tabs lorazepam 1 mg tablet (Ativan) 1 mg PO BID PRN anxiety #14 tabs 01/16/23 ondansetron 4 mg disintegrating 4 mg PO Q8H PRN nausea and 01/09/25 tablet vomiting #10 tabs Allergies Allergy/AdvReac Type Severity Reaction Status Date / Time acetaminophen [From Tylenol] Allergy Unknown Rash Verified 01/09/25 13:18 bee pollen [bee stings] Allergy Unknown Unknown Verified 01/09/25 13:18 ibuprofen Allergy Unknown Rash Verified 01/09/25 13:18 Review of Systems 2 Review of Systems: Yes all other systems are reviewed and are negative PMFSH Past Medical History Medical History No active medical problems Social History Social History Alcohol intake: never Patient Tobacco Use Status: Never used Tobacco Substance Use Type: Marijuana Advance Directives: No Advance Directives Information Provided: Yes Do you have a plan to hurt others: No Plan Current occupational status: unemployed Physical Exam ED Vital Signs: Vital Signs - 24 hr 01/09/25 13:14 01/09/25 15:05 01/09/25 17:59 Temperature 97.8 F 98.1 F 97.0 F Pulse Rate 89 88 87 Respiratory Rate 18 18 16 Blood Pressure 160/85 H 162/101 H 113/72 Pulse Oximetry 99 96 98 Oxygen Delivery Method Room Air Room Air BMI result Body Mass Index 26.8 Constitutional: ?Alert, oriented, speaking in full sentences HEENT: ?Normocephalic, atraumatic. ?Moist mucous membranes Eyes: ?PERRL, EOMI Neck: ?Supple, nontender Chest: ?No chest wall tenderness Respiratory: ?Lungs clear to auscultation, no increased work of breathing Cardio: ?Regular rate and rhythm, no murmur, 2+ radial and DP pulses symmetrically GI: ?Soft, nondistended, nontender Back: ?Normal range of motion, nontender Skin: ?No rash, no lesions Neuro: ?Alert and oriented to person, place and time, moves all 4 extremities, no focal deficits Extremities: ?No swelling or tenderness, full range of motion Psych: ?Calm, alert and cooperative, appropriate behavior Course Course Course Narrative: RME, this is a rapid medical exam performed by Silviano Francisco please refer to primary provider for complete H&P- 29-year-old male presents for evaluation abdominal pain, nausea vomiting, diarrhea. Plan for labs urinalysis and viral testing. He is well-appearing Medications Administered Discontinued Medications Generic Name Dose Route Start Last Admin Trade Name Roryq PRN Reason Stop Dose Admin Capsaicin 1 appl 01/09/25 16:31 01/09/25 16:44 Capsaicin 0.025% Cream 60 Gm Tube TOPICAL 01/09/25 16:32 1 appl ONCE ONE Administration Protocol Droperidol 1.25 mg 01/09/25 16:31 01/09/25 16:43 Droperidol 5 Mg/2 Ml Vial IVPUSH 01/09/25 16:32 1.25 mg ONCE ONE Administration Medical Decision Making Medical Decision Making [facility] Narrative: This is a well-appearing, vitally stable patient presenting with acute episodes of vomiting, some diarrhea yesterday and abdominal cramping. His abdominal exam is completely unremarkable. His labs including respiratory swab and kidney and liver function are unremarkable. He does have an elevated white blood cell count consistent with persistent vomiting. He has an equivocal urinalysis but no signs or symptoms consistent with acute cystitis. His nausea, vomiting and abdominal cramping has been significantly improved with a dose of droperidol and capsaicin ointment. At this time, it is likely that he has recurrent hyperemesis cannabinoid syndrome and has been instructed to continue to avoid cannabis at home. Provided him a prescription for Zofran. He has had no recurrent vomiting here. Lab Data 01/09/25 13:29 01/09/25 13:29 Labs: Lab Results 01/09/25 Range/Units 13:29 WBC 14.8 H (4.8-10.8) X10*3/uL RBC 5.30 (4.60-5.80) X10*6/uL Hgb 16.6 (14.0-18.0) g/dl Hct 44.8 (42.0-52.0) % MCV 84.5 (80.0-98.0) fL MCH 31.3 (27.0-33.0) pg MCHC 37.1 H (31.0-36.0) g/dl RDW 12.6 (11.0-16.0) % Plt Count 246 (160-400) X10*3/uL MPV 9.2 L (9.4-12.4) fL Immature Gran % (Auto) 0.3 (0.0-0.4) % Neut % (Auto) 79.5 H (45-73) % Lymph % (Auto) 12.5 L (20-40) % [place] % (Auto) 7.5 (2-11) % Eos % (Auto) 0.1 (0-4) % Baso % (Auto) 0.1 (0-2) % Lymph # (Auto) 1.9 (1.2-4.9) X10*3/uL [place] # (Auto) 1.1 (0.1-1.2) X10*3/uL Eos # (Auto) 0.0 (0.0-0.4) X10*3/uL Baso # (Auto) 0.0 (0.0-0.2) X10*3/uL Abs Immat Gran (auto) 0.05 H (0.00-0.03) X10*3/uL Absolute Neuts (auto) 11.7 H (2.0-8.3) x10*3/uL Absolute Nucleated RBC 0.000 (0.0-0.012) X10*3/uL Nucleated RBC % (auto) 0.0 (0.0-0.2) /100WBC Sodium 141 (135-145) mmol/L Potassium 3.8 (3.3-5.1) mmol/L Chloride 106 (96-108) mmol/L Carbon Dioxide 24 (22-29) mmol/L Anion Gap 15 (12-20) BUN 24 H (9-16) mg/dL Creatinine 1.33 (0.5-1.4) mg/dL Estim Creat Clear Calc 86.4 Estimated GFR > 60 Random Glucose 112 (60-115) mg/dL Calcium 11.2 H D (8.4-10.2) mg/dL Magnesium 2.0 (1.6-2.6) mg/dL Total Bilirubin 0.9 (0.0-1.0) mg/dL Direct Bilirubin 0.3 (0.0-0.5) mg/dL AST 27 (5-37) U/L ALT 36 (0-40) U/L Alkaline Phosphatase 106 (39-117) U/L Total Protein 9.4 H (6.5-8.0) g/dL Albumin 5.6 H (3.5-5.0) g/dL Lipase 13 (8-78) U/L Urine Color Dark Yellow Urine Appearance Clear Urine pH 6.0 (5.0-9.0) Ur Specific [place] >= 1.030 H (1.005-1.025) Urine Protein 300 (3+) H (Neg-Trace) mg/dL Urine Glucose (UA) Negative (Negative) mg/dL Urine Ketones 15 (Negative) mg/dL Urine Blood Trace H (Negative) Urine Nitrite Negative (Negative) Ur Leukocyte Esterase Negative (Negative) Urine RBC 3-5 H (0-2) /HPF Urine WBC 6-10 H (0-5) /HPF Ur Squamous Epith Cells 6-10 (0-2) /HPF Urine Bacteria None Seen (None Seen) Hyaline Casts 11-20 (0-2) /LPF Influenza Type A (PCR) NEGATIVE (Negative) Influenza Type B (PCR) NEGATIVE (Negative) RSV RNA Qual (PCR) NEGATIVE (Negative) SARS-CoV-2 RNA (RT-PCR) NEGATIVE (Negative) Discharge Plan Discharge Clinical Impression: Vomiting Qualifiers: Vomiting type: unspecified Nausea presence: with nausea Qualified Code(s): R 11.2 - Nausea with vomiting, unspecified Patient Disposition: Home, Self-Care Instructions: Acute Abdominal Pain (ED), Cannabis Abuse (ED), Cyclic Vomiting Syndrome (ED) Additional Instructions: You were evaluated for vomiting and abdominal cramping. This improved with droperidol. We prescribed a course of Zofran to take as needed for severe nausea or vomiting. As discussed, please continue to avoid marijuana use. Follow up with a primary care provider. Return with any worsening symptoms. Prescriptions: New ondansetron 4 mg tablet,disintegrating 4 mg PO Q8H PRN (Reason: nausea and vomiting) Qty: 10 0RF No Action ondansetron 4 mg tablet,disintegrating 4 mg PO Q6-8H PRN (Reason: Nausea And Vomiting) Qty: 10 0RF lorazepam [Ativan] 1 mg tablet 1 mg PO BID PRN (Reason: anxiety) Qty: 14 0RF Stand Alone Forms: Work/School Release Print Language: Iraqi
[2025-01-09 13:34] LABS: MANUAL DIFF FLAG NO
[2025-01-09 13:38] LABS: Appearance Urine Clear; Basophils Percent Auto 0.1 % (0-2); Color Urine Dark Yellow; Eosinophils Percent Auto 0.1 % (0-4); Glucose Urine UA Negative (Negative); Hematocrit 44.8 % (42.0-52.0); Hemoglobin 16.6 g/dl (14.0-18.0); Imm Gran Abs Auto 0.05 X10*3/uL (0.00-0.03); Imm Gran Pct Auto 0.3 % (0.0-0.4); Leukocyte Esterase Urine Negative (Negative); Lymphocytes Absolute Auto 1.9 X10*3/uL (1.2-4.9); Lymphocytes Percent Auto 12.5 % (20-40); Mean Corpuscular HGB Conc 37.1 g/dl (31.0-36.0); Mean Corpuscular Hemoglobin 31.3 pg (27.0-33.0); Mean Corpuscular Volume 84.5 fL (80.0-98.0); Mean Platelet Volume 9.2 fL (9.4-12.4); Monocytes Absolute Auto 1.1 X10*3/uL (0.1-1.2); Monocytes Percent Auto 7.5 % (2-11); Neutrophils Absolute Auto 11.7 x10*3/uL (2.0-8.3); Neutrophils Percent Auto 79.5 % (45-73); Nitrite Urine Negative (Negative); Platelet Count 246 X10*3/uL (160-400); Red Cell Distribution Width 12.6 % (11.0-16.0); Specific Gravity - Urine >= 1.030 (1.005-1.025); UMIC TRIGGER UACC YES; Urine Blood Trace (Negative); Urine Ketones 15 mg/dL (Negative); Urine Protein 300 (3+) mg/dL (Neg-Trace); White Blood Count 14.8 X10*3/uL (4.8-10.8)
[2025-01-09 13:51] LABS: Bacteria Urine None Seen (None Seen); UACC Culture Trigger YES
[2025-01-09 13:54] LABS: Alanine Aminotransferase 36 U/L (0-40); Albumin Level 5.6 g/dL (3.5-5.0); Alkaline Phosphatase 106 U/L (39-117); Anion Gap 15 (12-20); Aspartate Amino Transferase 27 U/L (5-37); Bilirubin Direct 0.3 mg/dL (0.0-0.5); Bilirubin Total 0.9 mg/dL (0.0-1.0); Blood Urea Nitrogen 24 mg/dL (9-16); Calcium 11.2 mg/dL (8.4-10.2); Carbon Dioxide 24 mmol/L (22-29); Chloride 106 mmol/L (96-108); Creatinine Clr Calc Pharmacy 86.4; Estimated Glomerular Filt Rate > 60; Glucose Random 112 mg/dL (60-115); Lipase 13 U/L (8-78); Potassium 3.8 mmol/L (3.3-5.1); Sodium 141 mmol/L (135-145); Total Protein 9.4 g/dL (6.5-8.0)
[2025-01-09 14:13] LABS: Influenza A PCR NEGATIVE (Negative); Influenza B PCR NEGATIVE (Negative); Resp Syncy Virus RNA Qual PCR NEGATIVE (Negative); SARS COV2 PCR INHOUSE NEGATIVE (Negative)
--- NOTE | 2025-01-09 15:04 | PC.NURSE ---
Patient presents with multiple complaints including abdominal pain with assoc n/v, sob and rib pain for the past 3 days.
[2025-01-09 15:05] VITALS: BP 162/101; PULSE 88; RESP 18; TEMP 36.7; O2SAT 96
[2025-01-09] MEDS: droPERidol 5 MG/2 ML VIAL 1.25 MG IVPUSH (16:43)
[2025-01-09] MEDS: Capsaicin 0.025% Cream 60 GM TUBE 1 APPL TOPICAL (16:44)
--- OUTSIDE RECORDS SUMMARY | 2025-01-09 17:13 | XMS_ITS | Encounter Summary ---
Author Organization [employer] Address [address] [place] [address] Care Team Providers Care Sewer Maintenance Supervisor Name Role Phone Bryanna Renner DIRECTOR ELECTRONICS Primary Care Provider [phone] Encounter Details Date Type Department Care Team (Late st Contact Info) Description 01/09/2025 Orders Only GENERIC EXTERNAL DATA DEPARTMENT Provider, Generic External Data Social History Tobacco Use Types Packs/Day Years Used Date Smoking Tobacco: Never Smokeless Tobacco: Never Alcohol Use Standard Drinks/Week Comments Not Currently 0 (1 standard drink = 0.6 oz pur e alcohol) socially - once biweekly Depression Answer Date Recorded Patient Health Questionnaire-9 Score 0 07/13/2023 Housing Stability Answer Date Recorded What is your housing situation today? I have ally echols 08/08/[address] you li ve. Do you have problems with any of the following? None of the above 08/08/2023 Food Insecurity Answer Date Recorded Within the past 12 months, y ou worried that your food would run out before you got money to buy more: Never True 08/08/2023 Within the past 12 months,th e food you bought just didn't last and you didn't have enough money to get more: Never True 03/2023 Transportation Answer Date Recorded In the past 12 months, has l ack of transportation kept you from medical appts, meetings, work or from getting things needed for daily living? No 08/08/2023 Utilities Answer Date Recorded In the past 12 months, has t he electric, gas, oil or water company threatened to shut off services in your home? No 08/08/2023 Depression Answer Date Recorded Patient Health Questionnaire-2 Score 0 07/13/2023 Sex and Gender Information Value Date Recorded Sex Assigned at Male 08/02/2022 10:40 AM EDT Legal Sex Male 10:40 AM EDT Gender Identity Male 08/02/2022 10:40 AM EDT Sexual Orientation Straight 08/02/2022 10 :40 AM EDT documented as of this encounter Plan of Treatment Not on file documented as of this encounter Procedures Procedure Name Priority Date/Time Associated Diagnosis Comments URINALYSIS, COMPLETE, WITH REFLEX TO CULTURE Routine 01/09/2025 1:29 PM EDT SARS COV2/INFLUENZA A/B AND RSV RNA QL NAAT Routine 01/09/2025 1:29 PM EDT CBC WITH AUTO DIFFERENTIAL Routine 01/09/2025 1:29 PM EDT MAGNESIUM Routine 01/09/2025 1:29 PM EDT LIPASE Routine 01/09/2025 1:29 PM EDT HEPATIC FUNCTION PANEL Routine 1:29 PM EDT COMPREHENSIVE METABOLIC PANEL Routine 01/09/2025 1:29 PM EDT documented in this encounter Results * SARS-CoV-2 RNA, Influenza A/B, and RSV RNA, Ql NAAT (01/09/2025 1:29 PM EDT) Influenza A PCR NEGATIVE Negative [facility] Influenza B PCR NEGATIVE Negative [facility] Resp Syncy Virus RNA Qual PCR NEGATIVE Negative [facility] SARS COV2 PCR NEGATIVE Negative [facility] Comment:All test results mus t be correlated with clinical findings.Negative results do not preclude SARS-CoV2, influenza Avirus, influenza B virus and/or RSV infectionand should not be used as the sole basis for treatment orother patient management decisions. Negative results must becombined with clinical observations, patient history, andepidemiological information.This test has not been evaluated for monitoring treatment ofinfection.This test has been authorized by the FDA under an EmergencyUse Authorization (EUA) for use by authorized laboratories.Testing performed on the Cepheid GeneXpert utilizingreal-time RT-PCR.All SARS CoV2 and positive influenza A/B results arereported to [facility]. 01/09/2025 1:29 PM EDT 01/09/2025 1:33 PM EDT Generic External Data Provider LAB MICROBIOLOGY - GENERAL ORDERABLES Final Result Performing Organization Address [facility] Co de Phone Number [facility] [address] [place] [phone] Lipase (01/09/2025 1:29 PM EDT) Lipase 13 8 - 78 U/L [facility] 01/09/2025 1:29 PM EDT 01/09/2025 1:33 PM EDT Generic External Data Provider LAB BLOOD ORDERAB LES Final Result Performing Organization Address [facility] Co de Phone Number [facility] [address] [place] [phone] * Magnesium (01/09/2025 1:29 PM EDT) Magnesium 2.0 1.6 - 2.6 mg/dL [facility] 01/09/2025 1:29 PM EDT 01/09/2025 1:33 PM EDT Generic External Data Provider LAB BLOOD ORDERAB LES Final Result Performing Organization Address [facility] de Phone Number [facility] [address] [place] [phone] Hepatic Function Panel (01/09/2025 1:29 PM EDT) Bilirubin, Direct 0.3 0.0 - 0.5 mg/dL [facility] 01/09/2025 1:29 PM EDT 01/09/2025 1:33 PM EDT us Generic External Data Provider LAB BLOOD ORDERAB LES Final Result [facility] [address] [place] [phone] * (ABNORMAL) Comprehensive Metabolic Panel (01/09/2025 1:29 PM EDT) Sodium 141 135 - 145 mmol/L [facility] Potassium 3.8 3.3 - 5.1 mmol/L [facility] Chloride 106 96 - 108 mmol/L [facility] Carbon Dioxide 24 22 - 29 mmol/L [facility] Anion Gap 15 12 - 20 [facility] Urea Nitrogen (BUN) 24(H) 9 - 16 mg/dL [facility] Creatinine, Serum 1.33 0.5 - 1.4 mg/dL [facility] Creatinine Clr Calc Pharmacy 86.4 [facility] Comment:eGFR (calculated fro m the MDRD study equation) and eCrCl(calculated from the Cockcroft-Gault equation) are based ondifferent parameters and may not yield comparable results.If eCrCl result is absurd, please check patient'sheight/weight. Estimated Glomerular Filt Rate >60 [facility] Comment:Chronic Kidney Disea se: Estimated GFR < 60 mL/min/[id number] Kidney Disease: Estimated GFR < 15 mL/min/1.73m2 Glucose 112 60 - 115 mg/dL [facility] Calcium 11.2(H) 8.4 - 10.2 mg/dL [facility] Bilirubin, Total 0.9 0.0 - 1.0 mg/dL [facility] Aspartate Amino Transferase 27 5 - 37 U/L [facility] Alanine Aminotransferase 36 0 - 40 U/L [facility] Total Protein 9.4(H) 6.5 - 8.0 g/dL [facility] Albumin Level 5.6(H) 3.5 - 5.0 g/dL [facility] Alkaline Phosphatase 106 39 - 117 U/L [facility] 01/09/2025 1:29 PM EDT 01/09/2025 1:33 PM EDT us Generic External Data Provider LAB BLOOD ORDERAB LES Final Result Performing Organization Address City/[facility]/ZIP Co de Phone Number [facility] [address] [place] [address] [phone] * (ABNORMAL) Urinalysis, Complete, with Reflex to Culture (01/09/2025 1:29 PM EDT) Color Urine Dark Yellow [facility] Appearance Urine Clear [facility] PH 6.0 5.0 - 9.0 [facility] Glucose Urine UA Negative Negative mg/dL [facility] Urine Blood Trace(A) Negative [facility] Specific [place] - Urine >=1.030(H) 1.005 - 1.025 [facility] Urine Protein 300 (3+)(A) Neg-Trace mg/dL [facility] Urine Ketones 15 Negative mg/dL [facility] Nitrite Urine Negative Negative [facility] Leukocyte Esterase Urine Negative Negative [facility] RBC Urine 3-5(A) 0 - 2 /HPF [facility] Urine WBC 6-10(A) 0 - 5 /HPF [facility] Urine Squamous Epithelial Cell 6-10 0 - 2 /HPF [facility] Urine Bacteria None Seen None Seen [facility] Hyaline Casts, Urine 11-20 0 - 2 /LPF [facility] 01/09/2025 1:29 PM EDT 01/09/2025 1:33 PM EDT Narrative [facility] - 01/09/2025 1:52 PM EDT [id number], Clean Catch us Generic External Data Provider LAB URINE ORDERAB LES Final Result Performing Organization Address [facility]/ZIP Co de Phone Number [facility] [address] [place] [address] [phone] * (ABNORMAL) CBC auto differential (01/09/2025 1:29 PM EDT) White Blood Count 14.8(H) 4.8 - 10.8 X10*3/uL [facility] Red Blood Count 5.30 4.60 - 5.80 X10*6/uL [facility] Hemoglobin 16.6 14.0 - 18.0 g/dl [facility] Hematocrit 44.8 42.0 - 52.0 % [facility] Mean Corpuscular Volume 84.5 80.0 - 98.0 fL [facility] Mean Corpuscular Hemoglobin 31.3 27.0 - 33.0 pg [facility] Mean Corpuscular HGB Conc 37.1(H) 31.0 - 36.0 g/dl [facility] Red Cell Distribution Width 12.6 11.0 - 16.0 % [facility] Platelet Count 246 160 - 400 X10*3/uL [facility] Mean Platelet Volume 9.2(L) 9.4 - 12.4 fL [facility] Neutrophils Percent Auto 79.5(H) 45 - 73 % [facility] Imm Gran Pct Auto 0.3 0.0 - 0.4 % [facility] Lymphocytes Percent Auto 12.5(L) 20 - 40 % [facility] Monocytes Percent Auto 7.5 2 - 11 % [facility] Eosinophils Percent Auto 0.1 0 - 4 % [facility] Basophils Percent Auto 0.1 0 - 2 % [facility] NRBC Pct Auto 0.0 0.0 - 0.2 /100WBC [facility] Neutrophils Absolute Auto 11.7(H) 2.0 - 8.3 x10*3/uL [facility] Imm Gran Abs Auto 0.05(H) 0.00 - 0.03 X10*3/uL [facility] Lymphocytes Absolute Auto 1.9 1.2 - 4.9 X10*3/uL [facility] Monocytes Absolute Auto 1.1 0.1 - 1.2 X10*3/uL [facility] Eosinophils Absolute Auto 0.0 0.0 - 0.4 X10*3/uL [facility] Basophils Absolute Auto 0.0 0.0 - 0.2 X10*3/uL [facility] NRBC Abs Auto 0.000 0.0 - 0.012 X10*3/uL [facility] 01/09/2025 1:29 PM EDT 01/09/2025 1:33 PM EDT us Generic External Data Provider LAB BLOOD ORDERAB LES Final Result [facility] [address] [place] [phone] documented in this encounter Visit Diagnoses Not on filedocumented in this encounter Additional Health Concerns Assessment Noted Time PHQ-9 Depression Total Score: 0 07/13/20 23 3:04 PM EDT documented as of this encounter Care Teams Sewer Maintenance Supervisor Relationship Specialty Start Date End Date Bryanna Renner NP [address] [place] [phone] PCP - General Family Medicine 07/27/24 documented as of this encounter
--- OUTSIDE RECORDS SUMMARY | 2025-01-09 17:13 | XMS_ITS | Clinical Summary ---
Author Organization [facility] Address [address] [place] [address] Care Team Providers Care Senior Editor Name Role Phone Unavailable Primary Care Provider Unavailabl e Source Comments PLEASE NOTE, if this patient is a minor, it may be UNLAWFUL to discuss sensitive information that is contained in these records (such as FAMILY PLANNING, MENTAL HEALTH or SUBSTANCE ABUSE) with the minor patient's parent or other person without the patient's specific authorization.[facility] Social History Tobacco Use Types Packs/Day Years Used Date Smoking Tobacco: Never Assessed Sex and Gender Information Value Date Recorded Sex Assigned at Not on file Legal Sex Male 6:25 AM PDT Gender Identity Not on file Sexual Orientation Not on file Plan of Treatment Upcoming Encounters Date Type Department Care Team (Late st Contact Info) Description 02/08/2025 11:00 AM EDT Office Visit [address] [place] [phone] Óscar Uriarte, [facility] [address] [place] [address] Health Maintenance Due Date Last Done Comments Anxiety Screening 1994 Hepatitis C Screening 1994 Tobacco Screening 1994 HIV Screening 2009 Hypertension Screening (#1) 2012 Imm-DTaP/Tdap/Td (1 - Tdap) 2013 Imm-Hepatitis B (1 of 3 - 19+ 3-dose series) 3 [id number] ( - 2023- season) 2024 Imm-Influenza (#1) 2024 Alcohol and Drug Screen 10/03/2024 Depression Annual Screen 10/03/2024
--- OUTSIDE RECORDS SUMMARY | 2025-01-09 17:13 | XMS_ITS | Clinical Summary ---
Author Organization [facility] Address [address] [place] [address] Care Team Providers Care Customer Resource Specialist Name Role Phone Bryanna Renner [facility] DIRECT[facility] Primary Care Provider [phone] Allergies Active Allergy Reactions Criticality Noted Date Comments Ibuprofen Rash Low 06/28/2023 Acetaminophen Rash Low 06/28/2023 Medications No known medications Active Problems Problem Noted Date Diagnosed Date Mass of finger of left hand 06/28/2023 Assessment & Plan (06/28/2023 4:28 PM EDT): recurrent left hand soft mass over thumb likely synovial vs ganglion cyst s/p aspiration last year but quickly recurred causing pain in his hand.-Soft mass is aprox 3 cm located next to extensor pollicis longus tendon of left hand -advised pt to use wrist brace for hours on and off to try to avoid excessive movement -referred to hand surgeon today may need surgery Elevated blood pressure read ing in office without diagnosis of hypertension 10/13/2022 Encounters Date Type Department Care Team Description 01/09/2025 Orders Only GENERIC EXTERNAL DATA DEPARTMENT Provider, Generic External Data 12/14/2024 [address] Risk Score [facility] (C[facility]) Department [address] [id number] Provider, Population Health Generic from Last 3 Months Immunizations Name Administration Dates Next Due Tdap 01/13/2024,04/30/2020 Family History Medical History Relation Name Comments Diabetes type II Father Relation Name Status Comments Father Social History Tobacco Use Types Packs/Day Years Used Date Smoking Tobacco: Never Smokeless Tobacco: Never Tobacco Cessation:Counseling Given: Not Answered Alcohol Use Standard Drinks/Week Comments Not Currently [...] Orientation Straight 08/02/2022 10 :40 AM EDT Last Filed Vital Signs Vital Sign Reading Time Taken Comments Blood Pressure 144/75 01/13/2024 1:36 PM EDT Pulse 75 01/13/2024 1:36 PM EDT Temperature 36.4 ??C (97.5 ??F) 01/13/2024 1:36 PM ED T Respiratory Rate 20 01/13/2024 1:36 PM EDT Oxygen Saturation 98% 11/09/2023 2:22 PM EST Inhaled Oxygen Concentration - - Weight 99.8 kg (220 lb) 01/13/2024 1:36 PM EDT Height 177.8 cm (5' 10 ) 01/13/2024 1:36 PM EDT Body Mass Index 31.57 01/13/2024 1:36 PM EDT Plan of Treatment Health Maintenance Due Date Last Done Comments HIV Screening 1994 Alcohol/Substance Use Screening 2006 Family Planning (PISQ) 2009 Hepatitis C Screening 2012 Hepatitis B Vaccines (1 of 3 - 19+ 3-dose series) 2013 COVID-19 Vaccine (1 - 2023-2 5 season) 2024 Influenza Vaccine (#1) 2024 Depression Screening 07/13/2024 07/13/2023, 07/13/2023 SDOH Screening 07/13/2024 07/13/2023 Tobacco Screening 01/12/2025 01/13/2024 DTaP/Tdap/Td Vaccines (3 - T d or Tdap) 01/12/2034 01/13/2024, 04/30/2020 Zoster Vaccines (1 of 2) 2044 RSV Patients and Patients Aged 60 years or older (1 - 1-dose 75+ series) 2069 HIB Vaccines Aged Out No longer eligi ble based on patient's age to complete this topic HPV Vaccines Aged Out No longer eligi ble based on patient's age to complete this topic Hepatitis A Vaccines Aged Out No long er eligible based on patient's age to complete this topic IPV Vaccines Aged Out No longer eligi ble based on patient's age to complete this topic Meningococcal Vaccine Aged Out No charlie eloisa eligible based on patient's age to complete this topic Pneumococcal Vaccine: Pediatrics (0 to 5 Years) and At-Risk Patients (6 to 49) Years) Aged Out No longer eligible b ased on patient's age to complete this topic RSV under 20 months Aged Out No longe r eligible based on patient's age to complete this topic Rotavirus Vaccines Aged Out No longer eligible based on patient's age to complete this topic Procedures Procedure Name Priority Date/Time Associated Diagnosis Comments LIPASE Routine 01/09/2025 1:29 PM EDT MAGNESIUM Routine 01/09/2025 1:29 PM EDT HEPATIC FUNCTION PANEL Routine 1:29 PM EDT COMPREHENSIVE METABOLIC PANEL Routine 01/09/2025 1:29 PM EDT URINALYSIS, COMPLETE, WITH REFLEX TO CULTURE Routine 01/09/2025 1:29 PM EDT CBC WITH AUTO DIFFERENTIAL Routine 01/09/2025 1:29 PM EDT SARS COV2/INFLUENZA A/B AND RSV RNA QL NAAT Routine 01/09/2025 1:29 PM EDT from Last 3 Months Results * (ABNORMAL) Urinalysis, Complete, with Reflex to Culture (01/09/2025 1:29 PM EDT) Color Urine Dark Yellow [facility] Appearance Urine Clear [facility] PH 6.0 5.0 - 9.0 [facility] Glucose Urine UA Negative Negative mg/dL [facility] Urine Blood Trace(A) Negative [facility] Specific [place] - Urine >=1.030(H) 1.005 - 1.025 [facility] Urine Protein 300 (3+)(A) Neg-Trace mg/dL [facility] Urine Ketones 15 Negative mg/dL [facility] Nitrite Urine Negative Negative [facility] Leukocyte Esterase Urine Negative Negative [facility] RBC Urine 3-5(A) 0 - 2 /HPF [facility] Urine WBC 6-10(A) 0 - 5 /HPF [facility] Urine Squamous Epithelial Cell 6-10 0 - 2 /HPF [facility] Urine Bacteria None Seen None Seen [facility] Hyaline Casts, Urine 11-20 0 - 2 /LPF [facility] 01/09/2025 1:29 PM EDT 01/09/2025 1:33 PM EDT Narrative [facility] - 01/09/2025 1:52 PM EDT [id number], Clean Catch us Generic External Data Provider LAB URINE ORDERAB LES Final Result [facility] [address] [place] [phone] * SARS-CoV-2 RNA, Influenza A/B, and RSV RNA, Ql NAAT (01/09/2025 1:29 PM EDT) Pathologist [facility] Influenza A PCR NEGATIVE Negative [facility] Influenza B PCR NEGATIVE Negative [facility] Resp Syncy Virus RNA Qual PCR NEGATIVE Negative [facility] SARS COV2 PCR NEGATIVE Negative [facility] Comment:All test results mus t be [...] use by authorized laboratories.Testing performed on the [employer] GeneXpert utilizingreal-time RT-PCR.All SARS CoV2 and positive influenza A/B results arereported to [facility]. 01/09/2025 1:29 PM EDT 01/09/2025 1:33 PM EDT us Generic External Data Provider LAB MICROBIOLOGY - GENERAL ORDERABLES Final Result [facility] [address] [place] [phone] * (ABNORMAL) CBC auto differential (01/09/2025 1:29 PM EDT) [facility] White Blood Count 14.8(H) 4.8 - 10.8 X10*3/uL [facility] Red Blood Count 5.30 4.60 - 5.80 X10*6/uL [facility] Hemoglobin 16.6 14.0 - 18.0 g/dl [facility] Hematocrit 44.8 42.0 - 52.0 % [facility] Mean Corpuscular Volume 84.5 80.0 - 98.0 fL [facility] Mean Corpuscular Hemoglobin 31.3 27.0 - 33.0 pg [facility] Mean Corpuscular HGB Conc 37.1(H) 31.0 - 36.0 g/dl [facility] Red Cell Distribution Width 12.6 11.0 - 16.0 % [facility] Platelet Count 246 160 - 400 X10*3/uL [facility] Mean Platelet Volume 9.2(L) 9.4 - 12.4 fL [facility] Neutrophils Percent Auto 79.5(H) 45 - 73 % [facility] Imm Gran Pct Auto 0.3 0.0 - 0.4 % [facility] Lymphocytes Percent Auto 12.5(L) 20 - 40 % [facility] Monocytes Percent Auto 7.5 2 - 11 % [facility] Eosinophils Percent Auto 0.1 0 - 4 % [facility] Basophils Percent Auto 0.1 0 - 2 % [facility] NRBC Pct Auto 0.0 0.0 - 0.2 /100WBC [facility] Neutrophils Absolute Auto 11.7(H) 2.0 - 8.3 x10*3/uL [facility] Imm Gran Abs Auto 0.05(H) 0.00 - 0.03 X10*3/uL [facility] Lymphocytes Absolute Auto 1.9 1.2 - 4.9 X10*3/uL [facility] Monocytes Absolute Auto 1.1 0.1 - 1.2 X10*3/uL [facility] Eosinophils Absolute Auto 0.0 0.0 - 0.4 X10*3/uL [facility] Basophils Absolute Auto 0.0 0.0 - 0.2 X10*3/uL [facility] NRBC Abs Auto 0.000 0.0 - 0.012 X10*3/uL [facility] 01/09/2025 1:29 PM EDT 01/09/2025 1:33 PM EDT us Generic External Data Provider LAB BLOOD ORDERAB LES Final Result [facility] [address] [place] [phone] * Magnesium (01/09/2025 1:29 PM EDT) Magnesium 2.0 1.6 - 2.6 mg/dL [facility] 01/09/2025 1:29 PM EDT 01/09/2025 1:33 PM EDT us Generic External Data Provider LAB BLOOD ORDERAB LES Final Result Performing Organization Address City/[facility]/ZIP Co de Phone Number [facility] [address] [place] [phone] * Lipase (01/09/2025 1:29 PM EDT) Pathologist [facility] Lipase 13 8 - 78 U/L [facility] 01/09/2025 1:29 PM EDT 01/09/2025 1:33 PM EDT us Generic External Data Provider LAB BLOOD ORDERAB LES Final Result Performing Organization Address [facility] Co de Phone Number [facility] [address] [place] [phone] * Hepatic Function Panel (01/09/2025 1:29 PM EDT) Pathologist [facility] Bilirubin, Direct 0.3 0.0 - 0.5 mg/dL [facility] 01/09/2025 1:29 PM EDT 01/09/2025 1:33 PM EDT Generic External Data Provider LAB BLOOD ORDERAB LES Final Result Performing Organization Address [facility] Co de Phone Number [facility] [address] [place] [phone] * (ABNORMAL) Comprehensive Metabolic Panel (01/09/2025 1:29 PM EDT) Pathologist [facility] Sodium 141 135 - 145 mmol/L [facility] Potassium 3.8 3.3 - 5.1 mmol/L [facility] Chloride 106 96 - 108 mmol/L [facility] Carbon Dioxide 24 22 - 29 mmol/L [facility] Anion Gap 15 12 - 20 [facility] Urea Nitrogen (BUN) 24(H) 9 - 16 mg/dL [facility] Creatinine, Serum 1.33 0.5 - 1.4 mg/dL [facility] Creatinine Clr Calc Pharmacy 86.4 [facility] Comment:eGFR (calculated fro m the MDRD study equation) and eCrCl(calculated from the Cockcroft-Gault equation) are based ondifferent parameters and may not yield comparable results.If eCrCl result is absurd, please check patient'sheight/weight. Estimated Glomerular Filt Rate >60 [facility] Comment:Chronic Kidney Disea se: Estimated GFR < 60 mL/min/1.09i2Mucvau Kidney Disease: Estimated GFR < 15 mL/min/1.73m2 Glucose 112 60 - 115 mg/dL [facility] Calcium 11.2(H) 8.4 - 10.2 mg/dL [facility] Bilirubin, Total 0.9 0.0 - 1.0 mg/dL [facility] Aspartate Amino Transferase 27 5 - 37 U/L [facility] Alanine Aminotransferase 36 0 - 40 U/L [facility] Total Protein 9.4(H) 6.5 - 8.0 g/dL [facility] Albumin Level 5.6(H) 3.5 - 5.0 g/dL [facility] Alkaline Phosphatase 106 39 - 117 U/L [facility] 01/09/2025 1:29 PM EDT 01/09/2025 1:33 PM EDT us Generic External Data Provider LAB BLOOD ORDERAB LES Final Result [facility] [address] [place] [phone] from Last 3 Months Insurance [facility] C3 Care Teams Customer Resource Specialist Relationship Specialty Start Date End Date Bryanna Renner NP [address] [place] [address] PCP - General Family Medicine 07/27/24
[2025-01-09 17:59] VITALS: BP 113/72; PULSE 87; RESP 16; TEMP 36.1; O2SAT 98
[2025-01-09 18:16] VITALS: BP 113/72; PULSE 87; RESP 16; TEMP 36.1; O2SAT 98
== END 2025-01-09 18:19 | disposition home or self-care (01) ==
PROVIDERS: Emergency Provider Emergency Medicine
DX: R11.2 Nausea with vomiting, unspecified (principal); M79.10 Myalgia, unspecified site; R10.2 Pelvic and perineal pain; Z03.818 Encounter for observation for suspected exposure to other biological agents ruled out; Z79.899 Other long term (current) drug therapy
CPT/HCPCS: 0241U; 80053; 81001; 82248; 83690; 83735; 85025; 87086; 96374; 99284; 99285; J1790

== ENCOUNTER 2025-03-19 15:40 | Outpatient (AMB) | payer MEDICAID, SELFPAY ==
[2025-03-19 15:58] VITALS: BMI 26.8
--- NOTE | 2025-03-19 15:58 | MHC.OFFVIS ---
Vital Signs 03/19/25 15:58 Height 5 ft 11 in Weight 192 lb BMI 26.8 Intake Visit Reasons: O/V Left Dorsal wrist ganglion cyst MRI rev Intake Note: Miguel Angel 30 yr old right hand dominant male presents today for his follow up visit to review his left hand MRI prior to discussing a repeat excision of his left dorsal wrist ganglion cyst. MR/MR wrist LT wo/w con IMPRESSION: 1. Synovial recess versus ganglion cyst along the radial aspect of the trapezium measuring up to 2.4 cm with minimal peripheral postcontrast enhancement. 2. Attenuation through the radial aspect of the triangular fibrocartilage complex without a definite full-thickness tear. 3. Mild extensor carpi ulnaris tendinosis without a transverse tendon tear or tendon retraction. Allergies acetaminophen [From Tylenol] Allergy (Unknown, Verified 03/19/25 16:01) Rash bee pollen [bee stings] Allergy (Unknown, Verified 03/19/25 16:01) Unknown ibuprofen Allergy (Unknown, Verified 03/19/25 16:01) Rash HPI HPI O/V Left Dorsal wrist ganglion cyst MRI rev: Details: Miguel Angel Hankins is a 29 year old right hand dominant man who returns for an MRI review of his recurrent left wrist ganglion cyst. He is S/P excisional biopsy. DOS: 09/01/23. He says this mass returned ~2 months after surgery, and has been increasing in size. He says this mass is causing him worsening pain & discomfort. He says he had to drop a box he was carrying the other ay due to this pain. He reports some intermittent & occasional numbness in his hand, but says this usually occurs when he holds his wrist a certain way to avoid any pain. 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 [facility] Medical History No active medical problems Social History Alcohol intake: never Patient Tobacco Use Status: Never used Tobacco Substance Use Type: Marijuana Current occupational status: unemployed Physical Exam Vital Signs: BMI result Body Mass Index 26.8 Const General: no acute distress and alert Orientation/consciousness: patient oriented x3 Neuro General: patient oriented x3 Extrem Other: Evaluation of Left Upper Extremity: The patient is alert, oriented, and in no acute distress Neuro: Median, Ulnar, Radial nerves motor and sensory intact and sensation is normal to the tips of all digits Vascular: Cap refill brisk ROM: He has full active range of motion of the thumb, and function of the EPL and EPB tendons. The patient appears to have a recurrence of his left dorsal wrist ganglion. It appears to be situated within the anatomic snuffbox and measures ~1.5 cm in diameter. It is just radial to the surgical incision site. No overlying skin changes Not particularly tender Full active range of motion of the wrist thumb and digits without pain. MR/MR wrist LT IMPRESSION: 1. Synovial recess versus ganglion cyst along the radial aspect of the trapezium measuring up to 2.4 cm with minimal peripheral postcontrast enhancement. 2. Attenuation through the radial aspect of the triangular fibrocartilage complex without a definite full-thickness tear. 3. Mild extensor carpi ulnaris tendinosis without a transverse tendon tear or tendon retraction. Electronically signed by: Duc Nance MD 08/31/2024 Psych Appearance: grossly normal Affect: normal affect Attitude: cooperative Assessment & Plan Assessment & Plan (1) Ganglion cyst of dorsum of left wrist: Comment: Left dorsal wrist ganglion excisional biopsy 09/01/2023 AR Code(s): M67.432 - Ganglion, left wrist Category: Medical Plan Assessment & plan: 1. Left Dorsal wrist ganglion cyst, recurrence DOS: 09/01/23 Measuring ~1.5cm in diameter, situated again within the anatomic snuffbox. I educated him about this condition & reviewed his MRI with him I discussed operative and non-operative treatment options The patient would like to proceed with a repeat excision if it can be done sometime next month. The risks and benefits of operative treatment were discussed with the patient and the patient wishes to proceed with surgery. These risks include, but are not limited to risk of damage to blood vessels, nerves, tendons, infection, recurrence, incomplete relief of preoperative symptoms, persistent pain, possible need for further surgery and the risks associated with regional blocks and anesthesia. The plan is to take the patient to the operating room sometime in the next few weeks for the following procedures: 1. REPEAT Left dorsal wrist ganglion excision from the snuffbox, under general All of the preoperative paperwork including the consent was reviewed today. All the patient's questions were answered. The patient understands that they will be contacted by our spray painter soon to schedule this procedure He denies Diabetes, blood thinners, asthma, heart, lung, kidney issues Scribed for Ban Hightower MD by Tacos Colmenares, bio medical technician, on 03/19/25 at 4:00 PM, EST. Coding Level of Care Code Est Pt Level 4 (87329) Diagnoses Ganglion cyst of dorsum of left wrist M67.432
--- OUTSIDE RECORDS SUMMARY | 2025-03-19 18:10 | XMS_ITS | Clinical Summary ---
Author Organization [employer] Address [address] [facility] [address] [place] [address] Care Team Providers Care Loom Fixer Supervisor Name Role Phone Bryanna Renner NEHEMIAS Primary Care Provider [phone] Allergies Active Allergy Reactions Criticality Noted Date [...] EXTERNAL DATA DEPARTMENT Provider, Generic External Data from Last 3 Months Immunizations Immunization Administration Dates Next Due Tdap 01/13/2024,04/30/2020 Family [...] Date Last Done Comments HIV Screening 1994 Disability Screening 1994 Alcohol/Substance Use Screening 2006 Family Planning (PISQ) 2009 Hepatitis C Screening 2012 Hepatitis B Vaccines (1 of 3 - 19+ 3-dose series) 2013 COVID-19 Vaccine (1 - 2023-2 5 season) 2024 Depression Screening 07/13/2024 07/13/2023, 07/13/2023 SDOH Screening 07/13/2024 07/13/2023 Tobacco Screening 01/12/2025 01/13/2024 Influenza Vaccine (Season Ended) 2025 DTaP/Tdap/Td Vaccines (3 - T d or [...] patient's age to complete this topic Meningococcal B Vaccine Aged Out No l onger eligible based on patient's age to complete this topic Meningococcal Vaccine Aged Out No charlie eloisa eligible based on patient's age to complete this topic Pneumococcal Vaccine: Pediatrics (0 to 5 Years) and At-Risk Patients (6 to 49) Years Aged Out No longer eligible b ased [...] QL NAAT Routine 01/09/2025 1:29 PM EDT CULTURE, URINE, ROUTINE Routine 01/09/2025 12:00 AM EDT from Last 3 Months Results * (ABNORMAL) Urinalysis, Complete, with Reflex to Culture (01/09/2025 1:29 PM EDT) Color Urine Dark Yellow [facility] Appearance Urine Clear [facility] PH 6.0 5.0 - 9.0 [facility] Glucose Urine UA Negative Negative mg/dL [facility] Urine Blood Trace(A) Negative [facility] Specific [place] - Urine >=1.030(H) 1.005 - 1.025 [facility] Urine Protein 300 (3+)(A) Neg-Trace mg/dL [facility] Urine Ketones 15 Negative mg/dL [facility] Nitrite Urine Negative Negative [facility] Leukocyte Esterase Urine Negative Negative [facility] RBC Urine 3-5(A) 0 - 2 /HPF [facility] Urine WBC 6-10(A) 0 - 5 /HPF [facility] Urine Squamous Epithelial Cell 6-10 0 - 2 /HPF [facility] Urine Bacteria None Seen None Seen [facility] Hyaline Casts, Urine 11-20 0 - 2 /LPF [facility] 01/09/2025 1:29 PM EDT 01/09/2025 1:33 PM EDT Narrative [facility] - 01/09/2025 1:52 PM EDT [id number], Clean Catch us Generic External Data Provider LAB URINE ORDERAB LES Final Result [facility] [address] [place] [phone] * SARS-CoV-2 RNA, Influenza A/B, and RSV RNA, Ql NAAT (01/09/2025 1:29 PM EDT) Pathologist [facility] Influenza A PCR NEGATIVE Negative [facility] Influenza B PCR NEGATIVE Negative [facility] Resp Syncy Virus RNA Qual PCR NEGATIVE Negative [facility] SARS COV2 PCR NEGATIVE Negative [facility] Comment:All test results mus t be [...] use by authorized laboratories.Testing performed on the [employer] GeneXpert utilizingreal-time RT-PCR.All SARS CoV2 and positive influenza A/B results arereported to [facility]. 01/09/2025 1:29 PM EDT 01/09/2025 1:33 PM EDT us Generic External Data Provider LAB MICROBIOLOGY - GENERAL ORDERABLES Final Result [facility] [address] [place] [phone] * (ABNORMAL) CBC auto differential (01/09/2025 1:29 PM EDT) [facility] White Blood Count 14.8(H) 4.8 - 10.8 X10*3/uL [facility] Red Blood Count 5.30 4.60 - 5.80 X10*6/uL [facility] Hemoglobin 16.6 14.0 - 18.0 g/dl [facility] Hematocrit 44.8 42.0 - 52.0 % [facility] Mean Corpuscular Volume 84.5 80.0 - 98.0 fL [facility] Mean Corpuscular Hemoglobin 31.3 27.0 - 33.0 pg [facility] Mean Corpuscular HGB Conc 37.1(H) 31.0 - 36.0 g/dl [facility] Red Cell Distribution Width 12.6 11.0 - 16.0 % [facility] Platelet Count 246 160 - 400 X10*3/uL [facility] Mean Platelet Volume 9.2(L) 9.4 - 12.4 fL [facility] Neutrophils Percent Auto 79.5(H) 45 - 73 % [facility] Imm Gran Pct Auto 0.3 0.0 - 0.4 % [facility] Lymphocytes Percent Auto 12.5(L) 20 - 40 % [facility] Monocytes Percent Auto 7.5 2 - 11 % [facility] Eosinophils Percent Auto 0.1 0 - 4 % [facility] Basophils Percent Auto 0.1 0 - 2 % [facility] NRBC Pct Auto 0.0 0.0 - 0.2 /100WBC [facility] Neutrophils Absolute Auto 11.7(H) 2.0 - 8.3 x10*3/uL [facility] Imm Gran Abs Auto 0.05(H) 0.00 - 0.03 X10*3/uL [facility] Lymphocytes Absolute Auto 1.9 1.2 - 4.9 X10*3/uL [facility] Monocytes Absolute Auto 1.1 0.1 - 1.2 X10*3/uL [facility] Eosinophils Absolute Auto 0.0 0.0 - 0.4 X10*3/uL [facility] Basophils Absolute Auto 0.0 0.0 - 0.2 X10*3/uL [facility] NRBC Abs Auto 0.000 0.0 - 0.012 X10*3/uL [facility] 01/09/2025 1:29 PM EDT 01/09/2025 1:33 PM EDT us Generic External Data Provider LAB BLOOD ORDERAB LES Final Result [facility] [address] [place] [address] [phone] * Magnesium (01/09/2025 1:29 PM EDT) Magnesium 2.0 1.6 - 2.6 mg/dL [facility] 01/09/2025 1:29 PM EDT 01/09/2025 1:33 PM EDT us Generic External Data Provider LAB BLOOD ORDERAB LES Final Result Performing Organization Address City/[facility]/ZIP Co de Phone Number [facility] [address] [place] [phone] * Lipase (01/09/2025 1:29 PM EDT) Lipase 13 8 - 78 U/L [facility] 01/09/2025 1:29 PM EDT 01/09/2025 1:33 PM EDT us Generic External Data Provider LAB BLOOD ORDERAB LES Final Result Performing Organization Address [facility]/ZIP Co de Phone Number [facility] [address] [place] [phone] * Hepatic Function Panel (01/09/2025 1:29 PM EDT) Bilirubin, Direct 0.3 0.0 - 0.5 mg/dL [facility] 01/09/2025 1:29 PM EDT 01/09/2025 1:33 PM EDT Generic External Data Provider LAB BLOOD ORDERAB LES Final Result Performing Organization Address [facility] Co de Phone Number [facility] [address] [place] [phone] * (ABNORMAL) Comprehensive Metabolic Panel (01/09/2025 1:29 PM EDT) Sodium 141 135 - 145 mmol/L [facility] Potassium 3.8 3.3 - 5.1 mmol/L [facility] Chloride 106 96 - 108 mmol/L [facility] Carbon Dioxide 24 22 - 29 mmol/L [facility] Anion Gap 15 12 - 20 [facility] Urea Nitrogen (BUN) 24(H) 9 - 16 mg/dL [facility] Creatinine, Serum 1.33 0.5 - 1.4 mg/dL [facility] Creatinine Clr Calc Pharmacy 86.4 [facility] Comment:eGFR (calculated fro m the MDRD study equation) and eCrCl(calculated from the Cockcroft-Gault equation) are based ondifferent parameters and may not yield comparable results.If eCrCl result is absurd, please check patient'sheight/weight. Estimated Glomerular Filt Rate >60 [facility] Comment:Chronic Kidney Disea se: Estimated GFR < 60 mL/min/1.29s8Muxjnn Kidney Disease: Estimated GFR < 15 mL/min/1.73m2 Glucose 112 60 - 115 mg/dL [facility] Calcium 11.2(H) 8.4 - 10.2 mg/dL [facility] Bilirubin, Total 0.9 0.0 - 1.0 mg/dL [facility] Aspartate Amino Transferase 27 5 - 37 U/L [facility] Alanine Aminotransferase 36 0 - 40 U/L [facility] Total Protein 9.4(H) 6.5 - 8.0 g/dL [facility] Albumin Level 5.6(H) 3.5 - 5.0 g/dL [facility] Alkaline Phosphatase 106 39 - 117 U/L [facility] 01/09/2025 1:29 PM EDT 01/09/2025 1:33 PM EDT us Generic External Data Provider LAB BLOOD ORDERAB LES Final Result [facility] [address] [place] [phone] * Culture, Urine, Routine (01/09/2025 12:00 AM EDT) Urine Urine specimen obtained by clean catch procedure / Unknown 01/09/2025 01/09/2025 Comment:[facility] - 01/10/2025 1:00 PM EDT Urine Culture No growth. Specimen Source: Urine clean catch us Generic External Data Provider LAB MICROBIOLOGY - GENERAL ORDERABLES Final Result [facility] [address] [place] [address] [phone] from Last 3 Months [facility] Care Teams Loom Fixer Supervisor Relationship Specialty Start Date End Date Bryanna Renner NP [address] [place] [phone] PCP - General Family Medicine 07/27/24
== END 2025-03-19 16:36 | disposition home or self-care (01) ==
LOC: HO.HOS 15:41
PROVIDERS: Visit Provider Orthopaedic Surgery
DX: M67.432 Ganglion, left wrist (principal)
CPT/HCPCS: 99214

== ENCOUNTER → 2025-03-19 15:40 | Outpatient (BNVA) | payer MEDICAID, SELFPAY | PROVIDERS: Visit Provider Orthopaedic Surgery | DX: M67.432 Ganglion, left wrist (principal); M25.532 Pain in left wrist | CPT/HCPCS: 99212 ==

== ENCOUNTER 2025-03-21 11:41 | Outpatient (AMB) | payer MEDICAID, SELFPAY ==
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
[2025-03-21 11:50] VITALS: BMI 26.8
--- OUTSIDE RECORDS SUMMARY | 2025-03-21 13:12 | XMS_ITS | Clinical Summary ---
Author Organization [employer] Address [address] [facility] [address] [place] [address] Care Team Providers Care Guest Room Inspector Name Role Phone Bryanna Renner NEHEMIAS Primary Care Provider [phone] Allergies Active Allergy Reactions Criticality Noted Date [...] 75 01/13/2024 1:36 PM EDT Temperature 36.4 C (97.5 F) 01/13/2024 1:36 PM EDT Respiratory Rate 20 01/13/2024 1:36 PM EDT [...] - 19+ 3-dose series) 2013 COVID-19 Vaccine (2023-2 5 season) 2024 Depression Screening 07/13/2024 07/13/2023, [...] 1:29 PM EDT) Color Urine Dark Yellow [facility] Appearance Urine Clear [facility] PH 6.0 5.0 - 9.0 [facility] Glucose Urine UA Negative Negative mg/dL [facility] Urine Blood Trace(A) Negative [facility] Specific [place] - Urine >=1.030(H) 1.005 - 1.025 [facility] Urine Protein 300 (3+)(A) Neg-Trace mg/dL [facility] Urine Ketones 15 Negative mg/dL [facility] Nitrite Urine Negative Negative [facility] Leukocyte Esterase Urine Negative Negative [facility] RBC Urine 3-5(A) 0 - 2 /HPF [facility] Urine WBC 6-10(A) 0 - 5 /HPF [facility] Urine Squamous Epithelial Cell 6-10 0 - 2 /HPF [facility] Urine Bacteria None Seen None Seen [facility] Hyaline Casts, Urine 11-20 0 - 2 /LPF [facility] 01/09/2025 1:29 PM EDT 01/09/2025 1:33 PM EDT Narrative [facility] - 01/09/2025 1:52 PM EDT [id number], Clean Catch us Generic External Data Provider LAB URINE ORDERAB LES Final Result [facility] [address] [place] [phone] * SARS-CoV-2 RNA, Influenza A/B, and RSV RNA, Ql NAAT (01/09/2025 1:29 PM EDT) [facility] Influenza A PCR NEGATIVE Negative [facility] Influenza B PCR NEGATIVE Negative [facility] Resp Syncy Virus RNA Qual PCR NEGATIVE Negative [facility] SARS COV2 PCR NEGATIVE Negative [facility] Comment:All test results mus t [...] use by authorized laboratories.Testing performed on the [employer] GeneXpert utilizingreal-time RT-PCR.All SARS CoV2 and positive influenza A/B results arereported to [facility]. 01/09/2025 1:29 PM EDT 01/09/2025 1:33 PM EDT us Generic External Data Provider LAB MICROBIOLOGY - GENERAL ORDERABLES Final Result [facility] [address] [place] [phone] * (ABNORMAL) CBC auto differential (01/09/2025 1:29 PM EDT) [facility] White Blood Count 14.8(H) 4.8 - 10.8 X10*3/uL [facility] Red Blood Count 5.30 4.60 - 5.80 X10*6/uL [facility] Hemoglobin 16.6 14.0 - 18.0 g/dl [facility] Hematocrit 44.8 42.0 - 52.0 % [facility] Mean Corpuscular Volume 84.5 80.0 - 98.0 fL [facility] Mean Corpuscular Hemoglobin 31.3 27.0 - 33.0 pg [facility] Mean Corpuscular HGB Conc 37.1(H) 31.0 - 36.0 g/dl [facility] Red Cell Distribution Width 12.6 11.0 - 16.0 % [facility] Platelet Count 246 160 - 400 X10*3/uL [facility] Mean Platelet Volume 9.2(L) 9.4 - 12.4 fL [facility] Neutrophils Percent Auto 79.5(H) 45 - 73 % [facility] Imm Gran Pct Auto 0.3 0.0 - 0.4 % [facility] Lymphocytes Percent Auto 12.5(L) 20 - 40 % [facility] Monocytes Percent Auto 7.5 2 - 11 % [facility] Eosinophils Percent Auto 0.1 0 - 4 % [facility] Basophils Percent Auto 0.1 0 - 2 % [facility] NRBC Pct Auto 0.0 0.0 - 0.2 /100WBC [facility] Neutrophils Absolute Auto 11.7(H) 2.0 - 8.3 x10*3/uL [facility] Imm Gran Abs Auto 0.05(H) 0.00 - 0.03 X10*3/uL [facility] Lymphocytes Absolute Auto 1.9 1.2 - 4.9 X10*3/uL [facility] Monocytes Absolute Auto 1.1 0.1 - 1.2 X10*3/uL [facility] Eosinophils Absolute Auto 0.0 0.0 - 0.4 X10*3/uL [facility] Basophils Absolute Auto 0.0 0.0 - 0.2 X10*3/uL [facility] NRBC Abs Auto 0.000 0.0 - 0.012 X10*3/uL [facility] 01/09/2025 1:29 PM EDT 01/09/2025 1:33 PM EDT us Generic External Data Provider LAB BLOOD ORDERAB LES Final Result [facility] [address] [place] [phone] * Magnesium (01/09/2025 1:29 PM EDT) Magnesium 2.0 1.6 - 2.6 mg/dL [facility] 01/09/2025 1:29 PM EDT 01/09/2025 1:33 PM EDT us Generic External Data Provider LAB BLOOD ORDERAB LES Final Result Performing Organization Address City/[facility]/ZIP Co de Phone Number [facility] [address] [place] [phone] * Lipase (01/09/2025 1:29 PM EDT) Pathologist [facility] Lipase 13 8 - 78 U/L [facility] 01/09/2025 1:29 PM EDT 01/09/2025 1:33 PM EDT us Generic External Data Provider LAB BLOOD ORDERAB LES Final Result Performing Organization Address City/[facility]/ZIP Co de Phone Number [facility] [address] [place] [phone] * Hepatic Function Panel (01/09/2025 1:29 PM EDT) Pathologist [facility] Bilirubin, Direct 0.3 0.0 - 0.5 mg/dL [facility] 01/09/2025 1:29 PM EDT 01/09/2025 1:33 PM EDT Generic External Data Provider LAB BLOOD ORDERAB LES Final Result Performing Organization Address [facility]/ZIP Co de Phone Number [facility] [address] [place] [phone] * (ABNORMAL) Comprehensive Metabolic Panel (01/09/2025 1:29 PM EDT) Sodium 141 135 - 145 mmol/L [facility] Potassium 3.8 3.3 - 5.1 mmol/L [facility] Chloride 106 96 - 108 mmol/L [facility] Carbon Dioxide 24 22 - 29 mmol/L [facility] Anion Gap 15 12 - 20 [facility] Urea Nitrogen (BUN) 24(H) 9 - 16 mg/dL [facility] Creatinine, Serum 1.33 0.5 - 1.4 mg/dL [facility] Creatinine Clr Calc Pharmacy 86.4 [facility] Comment:eGFR (calculated fro m the MDRD study equation) and eCrCl(calculated from the Cockcroft-Gault equation) are based ondifferent parameters and may not yield comparable results.If eCrCl result is absurd, please check patient'sheight/weight. Estimated Glomerular Filt Rate >60 [facility] Comment:Chronic Kidney Disea se: Estimated GFR < 60 mL/min/1.64e3Ysnsch Kidney Disease: Estimated GFR < 15 mL/min/1.73m2 Glucose 112 60 - 115 mg/dL [facility] Calcium 11.2(H) 8.4 - 10.2 mg/dL [facility] Bilirubin, Total 0.9 0.0 - 1.0 mg/dL [facility] Aspartate Amino Transferase 27 5 - 37 U/L [facility] Alanine Aminotransferase 36 0 - 40 U/L [facility] Total Protein 9.4(H) 6.5 - 8.0 g/dL [facility] Albumin Level 5.6(H) 3.5 - 5.0 g/dL [facility] Alkaline Phosphatase 106 39 - 117 U/L [facility] 01/09/2025 1:29 PM EDT 01/09/2025 1:33 PM EDT us Generic External Data Provider LAB BLOOD ORDERAB LES Final Result [facility] [address] [place] [phone] * Culture, Urine, Routine (01/09/2025 12:00 AM EDT) Urine Urine specimen obtained by clean catch procedure / Unknown 01/09/2025 01/09/2025 Comment:[facility] - 01/10/2025 1:00 PM EDT Urine Culture No growth. Specimen Source: Urine clean catch us Generic External Data Provider LAB MICROBIOLOGY - GENERAL ORDERABLES Final Result [facility] [address] [place] [phone] from Last 3 Months Insurance [facility] C[employer] Care Teams Guest Room Inspector Relationship Specialty Start Date End Date Bryanna Renner NP [address] [place] [phone] PCP - General Family Medicine 07/27/24
== END 2025-03-21 11:59 | disposition home or self-care (01) ==
LOC: HO.HOS 11:41
DX: M67.432 Ganglion, left wrist (principal)
CPT/HCPCS: 99214

== ENCOUNTER → 2025-03-21 11:41 | Outpatient (BNVA) | payer MEDICAID, SELFPAY | DX: M67.432 Ganglion, left wrist (principal) | CPT/HCPCS: 99212 ==

== ENCOUNTER 2025-04-30 13:28 | Outpatient (AMB) | payer MEDICAID, SELFPAY ==
[2025-04-30 13:43] VITALS: BMI 26.8
--- NOTE | 2025-04-30 13:43 | A.OFFVIS_ITS ---
Vital Signs 04/30/25 13:43 Height 5 ft 11 in Weight 192 lb BMI 26.8 Intake Visit Reasons: OV Lt Dorsal Wrist Ganglion Exc 04/08/25 Intake Note: Miguel Angel is a 30 year old male who presents today for his follow up visit for his left dorsal wrist ganglion. States he was scheduled to have his cyst removed on 04/08/[address] Ban Hightower however he was not able to attend due to work schedule. States he would like to have his cyst drained today and also would like to have discuss wearing a brace. Allergies acetaminophen (From Tylenol) Allergy (Unknown, Verified 04/30/25 13:50) Rash bee pollen (bee stings) Allergy (Unknown, Verified 04/30/25 13:50) Unknown ibuprofen Allergy (Unknown, Verified 04/30/25 13:50) Rash HPI HPI OV Lt Dorsal Wrist Ganglion Exc 04/08/25: Details: Miguel Angel Hankins is a 29 year old right hand dominant man who returns to discuss his recurrent left wrist ganglion cyst. He is S/P excisional biopsy. DOS: 09/01/23. He says this mass returned ~2 months after surgery, and has been increasing in size. He was scheduled for a repeat excision on 04/08/25 but cancelled this surgery due to work conflict. He says this mass is causing him worsening pain & discomfort. He would like to discuss an aspiration and bracing today. He reports some intermittent & occasional numbness in his hand, but says this usually occurs when he holds his wrist a certain way to avoid any pain. 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 [facility] Medical History No active medical problems Social History (Updated 04/30/25 @ 13:51 by MALICK Nash) Alcohol intake: never Patient Tobacco Use Status: Never used Tobacco Substance Use Type: Marijuana Current occupational status: unemployed Current occupation: right hand Physical Exam Vital Signs: BMI result Body Mass Index 26.8 Const General: no acute distress and alert Orientation/consciousness: patient oriented x3 Neuro General: patient oriented x3 Extrem Other: Evaluation of Left Upper Extremity: The patient is alert, oriented, and in no acute distress Neuro: Median, Ulnar, Radial nerves motor and sensory intact and sensation is normal to the tips of all digits Vascular: Cap refill brisk ROM: He has full active range of motion of the thumb, and function of the EPL and EPB tendons. The patient appears to have a recurrence of his left dorsal wrist ganglion. It appears to be situated within the anatomic snuffbox and measures ~1.5 cm in diameter. It is just radial to the surgical incision site. No overlying skin changes Not particularly tender Full active range of motion of the wrist thumb and digits without pain. MR/MR wrist LT IMPRESSION: 1. Synovial recess versus ganglion cyst along the radial aspect of the trapezium measuring up to 2.4 cm with minimal peripheral postcontrast enhancement. 2. Attenuation through the radial aspect of the triangular fibrocartilage complex without a definite full-thickness tear. 3. Mild extensor carpi ulnaris tendinosis without a transverse tendon tear or tendon retraction. Electronically signed by: Duc Nance MD 08/31/2024 Psych Appearance: grossly normal Affect: normal affect Attitude: cooperative Office Procedures AMB Fracture Care Details: No fracture, aspiration Fracture Billing Code: Fracture Billing Code Assessment & Plan Assessment & Plan (1) Ganglion cyst of dorsum of left wrist: Comment: Left dorsal wrist ganglion excisional biopsy 09/01/2023 AR Code(s): M67.432 - Ganglion, left wrist Category: Medical Plan Assessment & plan: 1. Left Dorsal wrist ganglion cyst, recurrence DOS: 09/01/23 Measuring ~1.5cm in diameter, situated again within the anatomic snuffbox. 2. Left basal joint discomfort I educated him about these conditions I discussed operative and non-operative treatment options We had scheduled him for operative repeat excision of the ganglion last visit, but he ultimately decided not to proceed with surgery. The patient would like to proceed with an aspiration He was fitted for a comfort cool splint, to be worn when at work only as this is when he is most bothered Aspiration #1: The risks and benefits of aspiration, including but not limited to risk of damage to blood vessels, nerves, tendons, infection, failure to improve symptoms, increased pain, and possible need for further aspirations or surgical intervention. After obtaining written consent, I sterilely prepped the area over the Left dorsal wrist. I then injected subcutaneously with a small amount 1% lidocaine. I then passed an 18 gauge needle into the ganglion and aspirated some clear viscous fluid consistent with a ganglion. Some remaining viscous fluid was then pushed out of the ganglion. The patient tolerated this well and with no complications. Scribed for Ban Hightower MD by Tacos Colmenares, medical billing coder, on 04/30/25 at 2:15 PM, EST. Coding Level of Care Code Est Pt Level 3 (65046) Diagnoses Ganglion cyst of dorsum of left wrist M67.432 CPT Codes Fracture Care - Fracture Billing Code: Fracture Billing Code ([id number])
== END 2025-04-30 14:41 | disposition home or self-care (01) ==
LOC: HO.HOS 13:29
PROVIDERS: Visit Provider Orthopaedic Surgery
DX: M67.432 Ganglion, left wrist (principal)
CPT/HCPCS: 20612; 99213

== ENCOUNTER → 2025-04-30 13:28 | Outpatient (BNVA) | payer MEDICAID, SELFPAY | PROVIDERS: Visit Provider Orthopaedic Surgery | DX: M67.432 Ganglion, left wrist (principal); M25.532 Pain in left wrist; R20.2 Paresthesia of skin | CPT/HCPCS: 20612; 99212; J2003 ==